=== PATIENT | female | born 1950 | race Caucasian/White ===

== ENCOUNTER 2018-03-02 16:58 | Emergency (ER) | payer OTHER, MEDICARE ==
--- OUTSIDE RECORDS SUMMARY | 2018-03-02 17:01 | XMS REPORT | Clinical Summary ---
:1950 Author Organization [facility] Address [address] [place] [address] Care Team Providers Name Role Phone Oscar Austin Primary Care Provider Allergies Active Allergy Reactions Severity Noted Date Comments Hydrocodone Rash Low 02/15/2018 Penicillin G Rash Low 02/16/2018 Current Medications Prescription Sig. Disp. Refills Start Date End Date Status atorvastatin (LIPITOR) 40 Take 40 mg by Active MG tablet mouth daily. aspirin (ECOTRIN) 81 MG Take 81 mg by Active enteric coated tablet mouth daily. DULoxetine (CYMBALTA) 60 Take 60 mg by Active MG capsule mouth daily. levothyroxine (SYNTHROID, Take 150 mcg by Active LEVOXYL) 150 mcg tablet mouth every morning. montelukast (SINGULAIR) 10 Take 10 mg by Active mg tablet mouth daily. pantoprazole (PROTONIX) 40 Take 40 mg by Active MG EC tablet mouth 2 (two) times a day. budesonide-formoterol Inhale 2 puffs Active (SYMBICORT) 160-4.5 daily. mcg/actuation inhaler valsartan-hydrochlorothiaz Take 1 tablet by Active sarina (DIOVAN-HCT) 320-25 mg mouth daily. per tablet verapamil sustained Take 240 mg by Active release (CALAN-SR) 240 MG mouth daily. SR tablet rivaroxaban (XARELTO) 20 Take 20 mg by Active mg tablet mouth daily. Active Problems Not on file Encounters Date Type Specialty Care Team Description 02/16/2018 Hospital Encounter Procedural Adam, Arrhythmia, vagal; Cardiology Moiz Atherosclerosis of [place] coronary artery of [place] heart without angina pectoris MD Carrington 02/16/2018 Procedure Pass Procedural Cardiology 02/16/2018 Surgery Procedural Ankit Medina loop recorder Cardiology Moiz insertion [[id number] MD Carrington (CPT)] after 03/01/2017 Family History Medical History Relation Name Comments Hypertension Father Hypertension Mother Relation Name Status Comments Father Mother Alive Social History Tobacco Use Types Packs/Day Years Used Date Never Smoker Smokeless Tobacco: Never Used Alcohol Use Drinks/Week oz/Week Comments No Sex Assigned at Date Recorded Not on file Last Filed Vital Signs Vital Sign Reading Time Taken Blood Pressure 141/70 02/16/2018 1:16 PM CDT Pulse 62 02/16/2018 1:16 PM CDT Temperature 35.9 C (96.7 F) 02/16/2018 12:04 PM CDT Respiratory Rate 19 02/16/2018 12:04 PM CDT Oxygen Saturation 96% 02/16/2018 12:04 PM CDT Inhaled Oxygen Concentration - - Weight 96.2 kg (212 lb) 02/16/2018 9:00 AM CDT Height 162.6 cm (5' 4") 02/16/2018 9:00 AM CDT Body Mass Index 36.39 02/16/2018 9:00 AM CDT Plan of Treatment Not on file Implants Implanted Type Area Utilization Management Manager Device Expiration Model / Identifier Date Serial / Lot System Reveal Linq W/Monitors - [id number] Cardiac N/A: [employer] 2018 LINQSYS / Implanted: 02/16/2018 (Quantity not on file) Pacemakers and N/A CARDIAC RHYTHM / Related DISEASE MGMT [id number] Products Procedures Procedure Name Priority Date/Time Associated Diagnosis Comments EP LOOP RECORDER Routine 02/16/2018 1:15 PM Arrhythmia, vagal Results for this INSERTION CDT Atherosclerosis of procedure are in [place] coronary the results artery of [place] section. heart without angina pectoris after 03/01/2017 Results Cv electrophysiology procedure (02/16/2018 1:15 PM) Specimen Performing Laboratory [facility] [id number] [place] [address] Narrative Successful LINQ implant. after 03/01/2017 Insurance Payer Benefit Plan / Group Subscriber ID Type Phone Address MEDICARE MEDICARE PART A AND B xxxxxxxxxx Medicare [place], [place] AARP AARP SUPPLEMENT xxxxxxxxxxx Commercial [phone] [place] [address]
--- NOTE | 2018-03-02 18:07 | RAD REPORT ---
EXAM DESCRIPTION: RAD - Knee Right 3 View - 03/02/2018 5:59 pm CLINICAL HISTORY: Pain and swelling to right knee. COMPARISON: None. FINDINGS: Moderate medial joint compartment space narrowing is present likely indicating osteoarthri tis. Small to moderate suprapatellar joint effusion is seen. No fracture or dislocation noted. Follow up MR imaging would be of value for assessment of internal derangement.
[2018-03-02] MEDS ORDERED: FENTANYL CITR 100 MCG/2 ML ONE (18:58)
--- NOTE | 2018-03-02 19:01 | EDPHYS ---
Physician Documentation [facility] Name: Mary Vargas Age: 68 yrs Sex: Female : 1950 Arrival Date: 03/02/2018 Time: 17:04 Bed 9 Private MD: ED Physician Pineda Cavazos HPI: 03/02 19:05 This 68 yrs old Female presents to ER via Ambulatory with complaints of Knee snw Injury. 19:05 The patient presents with an injury, pain, tenderness, weakness, gives out. The snw complaints affect the medial aspect of right knee. Context: The problem was sustained at home, resulted from a mis-step, the patient can partially bear weight, must have assistance, left knee replacement. Onset: The symptoms/episode began/occurred suddenly, today. Associated signs and symptoms: Pertinent positives: weakness. Treatment prior to arrival includes: knee immobilizer. Severity of symptoms: At their worst the symptoms were moderate. The patient has not experienced similar symptoms in the past, on opposite knee. It is unknown whether or not the patient has recently seen a physician. Historical: - Allergies: 17:16 HYDROCODONE; lk1 17:16 PENICILLINS; lk1 - PMHx: 17:16 allergies; COPD; Hyperlipidemia; Hypertension; TIA; lk1 - PSHx: 17:16 knee replacement; lk1 - Immunization history:: Adult Immunizations up to date. - Social history:: Smoking status: Patient/guardian denies using tobacco. ROS: 18:57 Constitutional: Negative for fever, chills, and weight loss, Eyes: Negative for injury, snw pain, redness, and discharge, ENT: Negative for injury, pain, and discharge, Neck: Negative for injury, pain, and swelling, Cardiovascular: Negative for chest pain, palpitations, and edema, Respiratory: Negative for shortness of breath, cough, wheezing, and pleuritic chest pain, Abdomen/GI: Negative for abdominal pain, nausea, vomiting, diarrhea, and constipation, Back: Negative for injury and pain, : Negative for injury, bleeding, discharge, and swelling, Skin: Negative for injury, rash, and discoloration, Neuro: Negative for headache, weakness, numbness, tingling, and seizure, Psych: Negative for depression, anxiety, suicide ideation, homicidal ideation, and hallucinations. 18:57 MS/extremity: Positive for injury or acute deformity, pain, swelling, tenderness, of the right knee. Exam: 18:53 Constitutional: This is a well developed, well nourished patient who is awake, alert, snw and in no acute distress. Head/Face: Normocephalic, atraumatic. Eyes: Pupils equal round and reactive to light, extra-ocular motions intact. Lids and lashes normal. Conjunctiva and sclera are non-icteric and not injected. Cornea within normal limits. Periorbital areas with no swelling, redness, or edema. ENT: Nares patent. No nasal discharge, no septal abnormalities noted. Tympanic membranes are normal and external auditory canals are clear. Oropharynx with no redness, swelling, or masses, exudates, or evidence of obstruction, uvula midline. Mucous membranes moist. Neck: Trachea midline, no thyromegaly or masses palpated, and no cervical lymphadenopathy. Supple, full range of motion without nuchal rigidity, or vertebral point tenderness. No Meningismus. Chest/axilla: Normal chest wall appearance and motion. Nontender with no deformity. No lesions are appreciated. Cardiovascular: Regular rate and rhythm with a normal S1 and S2. No gallops, murmurs, or rubs. Normal PMI, no JVD. No pulse deficits. Respiratory: Lungs have equal breath sounds bilaterally, clear to auscultation and percussion. No rales, rhonchi or wheezes noted. No increased work of breathing, no retractions or nasal flaring. Abdomen/GI: Soft, non-tender, with normal bowel sounds. No distension or tympany. No guarding or rebound. No evidence of tenderness throughout. Back: No spinal tenderness. No costovertebral tenderness. Full range of motion. Skin: Warm, dry with normal turgor. Normal color with no rashes, no lesions, and no evidence of cellulitis. Neuro: Awake and alert, GCS 15, oriented to person, place, time, and situation. Cranial nerves II-XII grossly intact. Motor strength 5/5 in all extremities. Sensory grossly intact. Cerebellar exam normal. Normal gait. Psych: Awake, alert, with orientation to person, place and time. Behavior, mood, and affect are within normal limits. 18:53 Musculoskeletal/extremity: Extremities: grossly normal except: noted in the medial aspect of right knee: decreased ROM, swelling, tenderness, Circulation is intact in all extremities. the right knee Sensation intact. DVT Exam: No signs of deep vein thrombosis. severe discomfort to medial right knee, + laxity. Vital Signs: 17:17 BP 121 / 63; Pulse 70; Resp 15; Temp 98.0(TE); Pulse Ox 96% on R/A; Weight 96.16 kg lk1 (R); Height 5 ft. 4 in. (162.56 cm) (R); Pain 10/10; 19:31 BP 127 / 65; Pulse 62; Resp 18; Pulse Ox 99% ; aj1 17:17 Body Mass Index 36.39 (96.16 kg, 162.56 cm) lk1 MDM: 17:45 Patient medically screened. snw 19:04 Data reviewed: vital signs, nurses notes. Data interpreted: Pulse oximetry: on room air snw is 96 %. Interpretation: normal. Counseling: I had a detailed discussion with the patient and/or guardian regarding: the historical points, exam findings, and any diagnostic results supporting the discharge/admit diagnosis, lab results, radiology results, the need for outpatient follow up, to return to the emergency department if symptoms worsen or persist or if there are any questions or concerns that arise at home. Special discussion: Based on the history and exam findings, there is no indication for further emergent testing or inpatient evaluation. I discussed with the patient/guardian the need to see the orthopedic surgeon for further evaluation of the symptoms. I discussed with the patient/guardian the need to see the primary care provider for further evaluation of the symptoms. 03/02 17:28 Order name: Knee Right 3 View XRAY; Complete Time: 18:15 snw Administered Medications: 19:05 Drug: fentaNYL (PF) 50 mcg Route: IM; Site: left deltoid; aj1 19:34 Follow up: Response: No adverse reaction aj1 Disposition: 03/03 18:42 Co-signature as Attending Physician, Pineda Cavazos MD. Disposition: 03/02/18 19:01 Discharged to Home. Impression: Unspecified internal derangement of right knee. - Condition is Stable. - Discharge Instructions: Knee Bracing, Knee Immobilizer, Knee Sprain, Knee Pain. - Prescriptions for Mobic 7.5 mg Oral Tablet - take 1 tablet by ORAL route once daily take with food; 20 tablet. Tylenol- Codeine #3 300-30 mg Oral Tablet - take 2 tablets by ORAL route every 6 hours As needed; 20 tablet. - Medication Reconciliation Form, Thank You Letter, Antibiotic Education, Prescription Opioid Use form. - Follow up: Private Physician; When: 2 - 3 days; Reason: Recheck today's complaints, Continuance of care, Re-evaluation by your physician. Follow up: Emergency Department; When: As needed; Reason: Worsening of condition. Signatures: Dispatcher [employer] EDEsme Chowdhury RN RN aj1 Maryana Zhu, JOURNEYMAN TOOL AND DIE MAKER-C JOURNEYMAN TOOL AND DIE MAKER-Csnw Tabitha Berry RN RN lk1 Pineda Cavazos MD MD gs Corrections: (The following items were deleted from the chart) 03/02 19:05 18:16 Knee Immobilizer ordered. samantha aj1 19:34 19:01 03/02/2018 19:01 Discharged to Home. Impression: Unspecified internal derangement aj1 of right knee. Condition is Stable. Forms are Medication Reconciliation Form, Thank You Letter, Antibiotic Education, Prescription Opioid Use. Follow up: Private Physician; When: 2 - 3 days; Reason: Recheck today's complaints, Continuance of care, Re-evaluation by your physician. Follow up: Emergency Department; When: As needed; Reason: Worsening of condition. samantha
--- NOTE | 2018-03-02 19:01 | ER ---
Nurse's Notes [facility] Name: Mary Vargas Age: 68 yrs Sex: Female : 1950 Arrival Date: 03/02/2018 Time: 17:04 Bed 9 Private MD: Diagnosis: Unspecified internal derangement of right knee Presentation: 03/02 17:14 Presenting complaint: Patient states: "I think I popped my knee (right) out last night. lk1 I put a brace on it to stabilize it.". Transition of care: patient was not received from another setting of care. Onset of symptoms was March 01, 2018 at 19:00. Initial Sepsis Screen: Does the patient meet any 2 criteria? No. Patient's initial sepsis screen is negative. Does the patient have a suspected source of infection? No. Patient's initial sepsis screen is negative. Care prior to arrival: None. 17:14 Method Of Arrival: Ambulatory lk1 17:14 Acuity: DAREN 4 lk1 Triage Assessment: 17:16 General: Appears in no apparent distress. Behavior is calm, cooperative, appropriate lk1 for age. Pain: Complains of pain in right knee Pain currently is 10 out of 10 on a pain scale. Musculoskeletal: Swelling present in right knee. Injury Description: Bruise. Historical: - Allergies: 17:16 HYDROCODONE; lk1 17:16 PENICILLINS; lk1 - PMHx: 17:16 allergies; COPD; Hyperlipidemia; Hypertension; TIA; lk1 - PSHx: 17:16 knee replacement; lk1 - Immunization history:: Adult Immunizations up to date. - Social history:: Smoking status: Patient/guardian denies using tobacco. Screenin:30 Abuse screen: Denies threats or abuse. Denies injuries from another. Nutritional aj1 screening: No deficits noted. Tuberculosis screening: No symptoms or risk factors identified. 19:31 Fall Risk None identified. aj1 Assessment: 17:30 General: Appears in no apparent distress. uncomfortable, Behavior is calm, cooperative, aj1 appropriate for age. Pain: Complains of pain in right knee. Neuro: Level of Consciousness is awake, alert, obeys commands, Oriented to person, place, time, situation. Cardiovascular: Patient's skin is warm and dry. Respiratory: Airway is patent Respiratory effort is even, unlabored, Respiratory pattern is regular, symmetrical. GI: No signs and/or symptoms were reported involving the gastrointestinal system. : No signs and/or symptoms were reported regarding the genitourinary system. EENT: No signs and/or symptoms were reported regarding the EENT system. Derm: Skin is pink, warm \\T\\ dry. normal. Musculoskeletal: Capillary refill < 3 seconds, in right toes. Range of motion: limited in right knee. 18:23 Reassessment: Patient appears in no apparent distress at this time. No changes from aj1 previously documented assessment. Patient and/or family updated on plan of care and expected duration. Pain level reassessed. Patient is alert, oriented x 3, equal unlabored respirations, skin warm/dry/pink. 19:31 Reassessment: Patient appears in no apparent distress at this time. No changes from aj1 previously documented assessment. Patient and/or family updated on plan of care and expected duration. Pain level reassessed. Patient is alert, oriented x 3, equal unlabored respirations, skin warm/dry/pink. Vital Signs: 17:17 BP 121 / 63; Pulse 70; Resp 15; Temp 98.0(TE); Pulse Ox 96% on R/A; Weight 96.16 kg lk1 (R); Height 5 ft. 4 in. (162.56 cm) (R); Pain 10/10; 19:31 BP 127 / 65; Pulse 62; Resp 18; Pulse Ox 99% ; aj1 17:17 Body Mass Index 36.39 (96.16 kg, 162.56 cm) lk1 ED Course: 17:04 Patient arrived in ED. sb2 17:15 Triage completed. lk1 17:19 Arm band placed on left wrist. lk1 17:28 Maryana Zhu FNP-C is PHCP. snw 17:28 Pineda Cavazos MD is Attending Physician. snw 17:28 Troy Altman PA is PHCP. cp 17:30 Patient has correct armband on for positive identification. Call light in reach. aj1 17:30 No provider procedures requiring assistance completed. aj1 17:58 X-ray completed. Portable x-ray completed in exam room. Patient tolerated procedure bb2 well. 17:59 Knee Right 3 View XRAY In Process Unspecified. EDMS 18:20 Esme nKight RN is Primary Nurse. aj1 19:31 Patient did not have IV access during this emergency room visit. Patient refused knee aj1 immobilizer, states that it doesn't fit her well and she has one at home. Administered Medications: 19:05 Drug: fentaNYL (PF) 50 mcg Route: IM; Site: left deltoid; aj1 19:34 Follow up: Response: No adverse reaction aj1 Outcome: 19:01 Discharge ordered by . samantha : Discharged to home aj1 : Condition: good : Discharge instructions given to patient, Instructed on discharge instructions, follow up and referral plans. no drinking with medication, no driving heavy equipment, medication usage, Demonstrated understanding of instructions, follow-up care, medications, Prescriptions given X 2. :34 Patient left the ED. aj1 Signatures: Dispatcher [employer] EDMS Esme Knight, RN RN aj1 Maryana Zhu, SILVICULTURE FORESTER-C SILVICULTURE FORESTER-Csnw Troy Altman PA PA cp Kluge, Leah, RN RN lk1 Gosia Perry bb2 Prerna Quach sb2
[2018-03-02 19:38] VITALS: TEMP 98
[2018-03-02 19:39] VITALS: BP 127/65; O2SAT 99
== END 2018-03-02 19:34 | disposition home or self-care (01) ==
LOC: ER 16:58
DX: M23.91 Unspecified internal derangement of right knee (principal); Z88.6 Allergy status to analgesic agent; Z88.0 Allergy status to penicillin; Z98.890 Other specified postprocedural states
CPT/HCPCS: 73562; 96372; 99284; J3010

== ENCOUNTER 2018-04-10 09:54 | Emergency (ER) | payer OTHER, MEDICARE ==
--- OUTSIDE RECORDS SUMMARY | 2018-04-10 09:57 | XMS REPORT | Clinical Summary ---
:1950 Author Organization [facility] Address [address] [place] [address] Care Team Providers Name Role Phone Oscar [...] Adam, Arrhythmia, vagal; Cardiology Moiz Atherosclerosis of [place] coronary artery of [place] heart without angina pectoris MD Carrington 02/16/2018 Procedure Pass Procedural Cardiology 02/16/2018 Surgery Procedural Ankit Medina loop recorder Cardiology Moiz insertion [[id number] MD Carrington (CPT)] after 04/09/2017 Family History Medical History Relation Name Comments [...] Not on file Implants Implanted Type Area Adjustment Examiner Device Expiration Model / Identifier Date Serial / Lot System Reveal Linq W/Monitors - [id number] Cardiac N/A: [employer] 2018 LINQSYS / Implanted: 02/16/2018 (Quantity not on file) Pacemakers and N/A CARDIAC RHYTHM / Related DISEASE MGMT [id number] Products Procedures Procedure Name Priority Date/Time Associated Diagnosis Comments EP LOOP RECORDER Routine 02/16/2018 1:15 PM Arrhythmia, vagal Results for this INSERTION CDT Atherosclerosis of procedure are in [place] coronary the results artery of [place] section. heart without angina pectoris after 04/09/2017 Results Cv electrophysiology procedure (02/16/2018 1:15 PM) Narrative Performed At Successful LINQ implant. [facility] Performing Organization Address City/State/Zipcode Phone Number [facility] [id number] [place] [address] after 04/09/2017 Insurance Payer Benefit Plan / Group Subscriber ID Type Phone Address MEDICARE MEDICARE PART A AND B xxxxxxxxxx Medicare [place], [place] AARP AARP SUPPLEMENT xxxxxxxxxxx Commercial [phone] [address]
--- OUTSIDE RECORDS SUMMARY | 2018-04-10 09:57 | XMS REPORT ---
:1950 Author Organization [employer] Care Team Providers Name Role Phone Oscar Austin Provider Role Unavailable Allergies No Known Allergies Problems Problem Type Condition Code Onset Dates Condition Status Problem Benign essential hypertension I10 Active Problem Obstructive sleep apnea G47.33 Active Problem Mixed hyperlipidemia E78.2 Active Problem Asthma J45.909 Active Assessment Benign essential hypertension I10 Active Problem Hypothyroidism E03.9 Active Problem Osteoarthritis of knee, unspecified M17.10 Active laterality, unspecified osteoarthritis type Problem Macular degeneration H35.30 Active Problem Colonic polyp K63.5 Active Problem Psoriasis L40.9 Active Problem Prediabetes R73.09 Active Problem Gastroesophageal reflux disease K21.9 Active without esophagitis Problem Age-related osteoporosis without M81.0 Active current pathological fracture Problem Systemic lupus erythematosus M32.9 Active Problem History of transient ischemic Z86.73 Active attack Problem Interstitial lung disease J84.9 Active Problem Mitral valve regurgitation I34.0 Active Problem Atherosclerotic heart disease of I25.10 Active [place] coronary artery without angina pectoris Problem Acute chronic obstructive pulmonary J44.9 Active disease with respiratory distress Problem Factor V Leiden mutation D68.51 Active Problem Cancer C80.1 Active Medications Medication Code Code Instructions Start End Status Dosage System Date Date Verapamil HCl [facility] 93039345984 240 MG Inactive ONCE A ER DAY ORALLY Verapamil HCl ND 94895322705 80 MG Orally April 03, Inactive 1 tablet Three times a 2018 day Verapamil HCl ND 73759593365 240 MG Orally April 03, Active 1 tablet ER Once a day 2018 Results No Known Results Summary Purpose [employer]Works Submission
--- OUTSIDE RECORDS SUMMARY | 2018-04-10 09:57 | XMS REPORT ---
:1950 Author Organization [employer] Care Team Providers Name Role Phone Oscar Austin Provider Role Unavailable Allergies No Known Allergies Problems Problem Type Condition Code Onset Dates Condition Status Problem Benign essential hypertension I10 Active Problem Obstructive sleep apnea G47.33 Active Problem Mixed hyperlipidemia E78.2 Active Problem Asthma J45.909 Active Assessment Gastroesophageal reflux disease K21.9 Active without esophagitis Problem Hypothyroidism E03.9 Active Problem Osteoarthritis of [...] Problem Atherosclerotic heart disease of I25.10 Active [place] coronary artery without angina pectoris Problem Acute chronic obstructive pulmonary J44.9 Active disease with respiratory distress Problem Factor V Leiden mutation D68.51 Active Problem Cancer C80.1 Active Medications Medication Code Code Instructions Start End Status Dosage System Date Date Pantoprazole [facility] 79077421053 40 MG Orally April 05, Active 1 tablet Sodium Twice a day [address] [facility] 06932868394 40 MG PO once a Inactive 1 TAB Sodium day DAILY IN AM Results No Known Results Summary Purpose [employer]Works Submission
--- OUTSIDE RECORDS SUMMARY | 2018-04-10 09:57 | XMS REPORT ---
:1950 Author Organization [employer] Care Team Providers Name Role Phone Oscar Austin Provider Role Unavailable Allergies No Known Allergies Problems Problem Type Condition Code Onset Dates Condition Status Problem Benign essential hypertension I10 Active Problem Obstructive sleep apnea G47.33 Active Problem Mixed hyperlipidemia E78.2 Active Problem Asthma J45.909 Active Problem Hypothyroidism E03.9 Active Problem Osteoarthritis [...] Problem Atherosclerotic heart disease of I25.10 Active [place] coronary artery without angina pectoris Problem Acute chronic obstructive pulmonary J44.9 Active disease with respiratory distress Problem Factor V Leiden mutation D68.51 Active Problem Cancer C80.1 Active Medications No Known Medications Results No Known Results Summary Purpose [employer]Works Submission
--- OUTSIDE RECORDS SUMMARY | 2018-04-10 09:57 | XMS REPORT ---
:1950 Author Organization eClinicalWorks Care Team Providers Name Role Phone Payton Austinh Provider Role Unavailable Allergies, Adverse Reactions, Alerts Substance Reaction Event Type Hydrocodone Bitart (Antituss) Info Not Available Drug Allergy Amoxicillin Info Not Available Drug Allergy Problems Problem Type Condition Code Onset Dates Condition Status Assessment Asthma J45.909 Active Assessment Gastroesophageal reflux disease K21.9 Active without esophagitis Assessment History of transient ischemic Z86.73 Active attack Problem Acute chronic obstructive pulmonary J44.9 Active disease with respiratory distress Assessment Osteoarthritis of knee, unspecified M17.10 Active laterality, unspecified osteoarthritis type Problem Cancer C80.1 Active Assessment Hypothyroidism E03.9 Active Problem Benign essential hypertension I10 Active Problem Obstructive sleep apnea G47.33 Active Problem Mixed hyperlipidemia E78.2 Active Problem Asthma J45.909 Active Problem Hypothyroidism E03.9 Active Assessment Benign essential hypertension I10 Active Assessment Mixed hyperlipidemia E78.2 Active Problem Osteoarthritis of knee, unspecified M17.10 Active laterality, unspecified osteoarthritis type Assessment 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 50934941138 108 (90 Base) Active 2 puffs as MCG/ACT needed Inhalation every [address] [facility] 29649455584 81 MG Orally Active 1 tablet Once a day Tramadol HCl [facility] 20591454792 50 MG Orally Active 1 tablet as every 6 hrs needed Vitamin D3 [facility] 94875036252 1000 UNIT Active 1 capsule Orally Once a day Betamethasone [facility] 69426778175 0.05 % Active 1 application Dipropionate Externally Once to affected a day area Verapamil HCl ER [facility] 13689051828 240 MG Active ONCE A DAY ORALLY Singulair [facility] 83963509065 10 MG Orally Active 1 tablet in Once a day the evening Pantoprazole [facility] 08357499387 40 MG PO once a Active 1 TAB DAILY Sodium day IN AM Symbicort [facility] 44248140171 160-4.5 MCG/ACT Active 2 puffs Inhalation Twice a day Duloxetine HCl [facility] 44816787231 60 MG Orally Active 1 capsule Once a day Xarelto [facility] 12410061788 20 MG Orally Active 1 tablet with Once a day food Diovan HCT [facility] 59563499738 320-25 MG Active 1 tablet Orally Once a day Calcium [facility] 58571256200 600-200 MG-UNIT Active not defined Orally Results No Known Results Summary Purpose eClinicalWorks Submission
--- NOTE | 2018-04-10 11:04 | RAD REPORT ---
EXAM DESCRIPTION: VAS - Extremity Venous Uni Ltd - 04/10/2018 10:57 am CLINICAL HISTORY: Right leg pain and swelling COMPARISON: None. TECHNIQUE: Real-time sonographic evaluation of the right lower extremity deep venous systems was per formed. FINDINGS: Normal compressibility, flow augmentation, phasic flow and spontaneous flow are identified in the right lower extremity common femoral, superficial femoral and popliteal deep veins. The deep veins at the ankle also clear of any identifiable thrombus. . No intraluminal filling defects seen. N o suspicious finding in the soft tissues. IMPRESSION: No DVT in the right lower extremity.
--- NOTE | 2018-04-10 11:05 | EDPHYS ---
Physician Documentation [facility] Name: Mary Vargas Age: 68 yrs Sex: Female : 1950 Arrival Date: 04/10/2018 Time: 09:58 Bed 15 Private MD: Oscar Austin ED Physician Troy Munguia HPI: 04/10 10:45 This 68 yrs old Female presents to ER via Ambulatory with complaints of jr8 redness to leg. 10:45 The patient presents with pain, swelling. The complaints affect the right leg. Onset: jr8 The symptoms/episode began/occurred acutely, 2 day(s) ago. Modifying factors: The symptoms are alleviated by nothing. the symptoms are aggravated by movement, weight bearing. Associated signs and symptoms: The patient has no apparent associated signs or symptoms. Severity of symptoms: At their worst the symptoms were moderate, in the emergency department the symptoms are unchanged. The patient has not experienced similar symptoms in the past. The patient has not recently seen a physician. Patient stated that she thinks she was bit by something. Stated that she has redness to medial right ankle region that now goes all the way around . Historical: - Allergies: 10:08 HYDROCODONE; sv 10:08 PENICILLINS; sv - Home Meds: 10:08 aspirin 81 mg Oral TbEC 1 tab once daily [Active]; betamethasone valerate 0.1 % Topical rb1 crea once daily [Active]; budesonide 3 mg Oral CECX 2 caps once daily [Active]; cholecalciferol (vitamin D3) 1,000 unit Oral cap daily [Active]; desonide 0.05 % Topical crea daily [Active]; Diovan HCT 320-25 mg Oral tab 1 tab once daily [Active]; folic acid 0.8 mg Oral cap 0.4 mg daily [Active]; levothyroxine 200 mcg tab 1 tab once daily [Active]; Lipitor 40 mg Oral tab 1 tab once daily [Active]; montelukast 10 mg Oral tab 1 tab once daily [Active]; Plaquenil 200 mg Oral tab 2 tabs once daily [Active]; PreserVision AREDS 2 194-064-71-1 np-jzph-qx-mg Oral cap daily [Active]; Protonix 40 mg Oral TbEC 1 tab once daily [Active]; verapamil 240 mg Oral TbER 1 tab once daily [Active]; Xarelto 20 mg Oral tab 1 tab once daily [Active]; - PMHx: 10:08 allergies; COPD; Hyperlipidemia; Hypertension; TIA; GERD; sv - PSHx: 10:08 knee replacement; Hysterectomy; Bladder suspension; neck lymph nodes removed; sv - Immunization history:: Adult Immunizations up to date. - Social history:: Smoking status: Patient/guardian denies using tobacco, Patient/guardian denies using alcohol. - Ebola Screening: : No symptoms or risks identified at this time. ROS: 10:45 Eyes: Negative for injury, pain, redness, and discharge, ENT: Negative for injury, jr8 pain, and discharge, Neck: Negative for injury, pain, and swelling, Cardiovascular: Negative for chest pain, palpitations, and edema, Respiratory: Negative for shortness of breath, cough, wheezing, and pleuritic chest pain, Abdomen/GI: Negative for abdominal pain, nausea, vomiting, diarrhea, and constipation, Back: Negative for injury and pain, MS/Extremity: Negative for injury and deformity, Neuro: Negative for headache, weakness, numbness, tingling, and seizure. 10:45 Skin: Positive for erythema, swelling, of the right leg. Exam: 10:45 Cardiovascular: Regular rate and rhythm with a normal S1 and S2. No gallops, murmurs, jr8 or rubs. Normal PMI, no JVD. No pulse deficits. Respiratory: Lungs have equal breath sounds bilaterally, clear to auscultation and percussion. No rales, rhonchi or wheezes noted. No increased work of breathing, no retractions or nasal flaring. MS/ Extremity: Pulses equal, no cyanosis. Neurovascular intact. Full, normal range of motion. Neuro: Awake and alert, GCS 15, oriented to person, place, time, and situation. Cranial nerves II-XII grossly intact. Motor strength 5/5 in all extremities. Sensory grossly intact. Cerebellar exam normal. Normal gait. 10:45 Skin: cellulitis, that is moderate, on the right lower leg, Patient has area of deep redness to medial right ankle region with surrounding erythema that is circumferential. Affected area only to distal portion of the lower leg . Vital Signs: 10:02 Temp 98.8(TE); Weight 96.16 kg; Height 5 ft. 4 in. (162.56 cm); Pain 7/10; sv 10:08 BP 136 / 70; Pulse 79; Resp 19; Pulse Ox 95% on R/A; rb1 11:00 BP 114 / 93; Pulse 79; Resp 19; Pulse Ox 96% on R/A; rb1 10:02 Body Mass Index 36.39 (96.16 kg, 162.56 cm) sv MDM: 10:10 Patient medically screened. toma 11:04 Data reviewed: vital signs, nurses notes, radiologic studies, ultrasound, and as a jr8 result, I will discharge patient. Data interpreted: Pulse oximetry: on room air is 95 %. Interpretation: normal. Counseling: I had a detailed discussion with the patient and/or guardian regarding: the historical points, exam findings, and any diagnostic results supporting the discharge/admit diagnosis, radiology results, the need for outpatient follow up, a family practitioner, to return to the emergency department if symptoms worsen or persist or if there are any questions or concerns that arise at home. 04/10 10:18 Order name: US Extremity Venous Unilateral Ltd; Complete Time: 11:05 jr8 Administered Medications: 11:12 Drug: Bactrim (160 mg-800 mg (DS) 1 tablet Route: PO; rb1 11:45 Follow up: Response: No adverse reaction rb1 11:37 Drug: Clindamycin 600 mg {Note: and right gluteus.} Route: IM; Site: left gluteus; rb1 11:50 Follow up: Response: No adverse reaction rb1 Disposition: 04/11 06:48 Co-signature as Attending Physician, Troy Munguia MD I agree with the assessment and [facility] plan of care. Disposition: 04/10/18 11:04 Discharged to Home. Impression: Cellulitis of right lower limb. - Condition is Stable. - Discharge Instructions: Cellulitis. - Prescriptions for Clindamycin HCl 300 mg Oral Capsule - take 1 capsule by ORAL route every 6 hours for 10 days; 40 capsule. Bactrim DS 800- 160 mg Oral Tablet - take 1 tablet by ORAL route every 12 hours for 10 days; 20 tablet. - Medication Reconciliation Form, Thank You Letter, Antibiotic Education, Prescription Opioid Use form. - Follow up: Oscar Austin DO; When: 2 - 3 days; Reason: Recheck today's complaints, Continuance of care, Re-evaluation by your physician. - Problem is new. - Symptoms have improved. Signatures: Dispatcher [employer] Valarie Garcia, RN RN Troy Fox MD MD cha Roszak, Josh, PA PA jr8 Octavia Chaparro, RN RN rb1 Corrections: (The following items were deleted from the chart) 04/10 11:52 11:04 04/10/2018 11:04 Discharged to Home. Impression: Cellulitis of right lower limb. rb1 Condition is Stable. Forms are Medication Reconciliation Form, Thank You Letter, Antibiotic Education, Prescription Opioid Use. Follow up: Oscar Austin; When: 2 - 3 days; Reason: Recheck today's complaints, Continuance of care, Re-evaluation by your physician. Problem is new. Symptoms have improved. jr8
--- NOTE | 2018-04-10 11:05 | ER ---
Nurse's Notes [facility] Name: Mary Vargas Age: 68 yrs Sex: Female : 1950 Arrival Date: 04/10/2018 Time: 09:58 Bed 15 Private MD: Oscar Austin Diagnosis: Cellulitis of right lower limb Presentation: 04/10 10:02 Presenting complaint: Patient states: RLE redness and swelling started Monday and has sv since increased. Unknown if pt was bitten by something. Pt reports unable to walk on her right heel. Transition of care: patient was not received from another setting of care. Onset of symptoms was April 08, 2018. Care prior to arrival: None. 10:02 Method Of Arrival: Ambulatory sv 10:02 Acuity: DAREN 3 sv 10:08 Risk Assessment: Do you want to hurt yourself or someone else? Patient reports no rb1 desire to harm self or others. Initial Sepsis Screen: Does the patient meet any 2 criteria? No. Patient's initial sepsis screen is negative. Does the patient have a suspected source of infection? No. Patient's initial sepsis screen is negative. Triage Assessment: 10:02 General: Appears in no apparent distress. uncomfortable, Behavior is calm, cooperative, sv appropriate for age. Pain: Complains of pain in right foot and right leg Pain currently is 7 out of 10 on a pain scale. at worst was 10 out of 10 on a pain scale. Pain began 2-3 days ago. EENT: No signs and/or symptoms were reported regarding the EENT system. Neuro: Level of Consciousness is awake, alert, obeys commands, Oriented to person, place, time, situation, Moves all extremities. Full function Gait is steady. Respiratory: Respiratory effort is even, unlabored, Respiratory pattern is regular, symmetrical. GI: No signs and/or symptoms were reported involving the gastrointestinal system. : No signs and/or symptoms were reported regarding the genitourinary system. Derm: Skin is normal. Musculoskeletal: Reports pain in heel of right foot. 10:02 Bite description: animal information: vaccination(s) is not applicable. rb1 Historical: - Allergies: 10:08 HYDROCODONE; sv 10:08 PENICILLINS; sv - Home Meds: 10:08 aspirin 81 mg Oral TbEC 1 tab once daily [Active]; betamethasone valerate 0.1 % Topical rb1 crea once daily [Active]; budesonide 3 mg Oral CECX 2 caps once daily [Active]; cholecalciferol (vitamin D3) 1,000 unit Oral cap daily [Active]; desonide 0.05 % Topical crea daily [Active]; Diovan HCT 320-25 mg Oral tab 1 tab once daily [Active]; folic acid 0.8 mg Oral cap 0.4 mg daily [Active]; levothyroxine 200 mcg tab 1 tab once daily [Active]; Lipitor 40 mg Oral tab 1 tab once daily [Active]; montelukast 10 mg Oral tab 1 tab once daily [Active]; Plaquenil 200 mg Oral tab 2 tabs once daily [Active]; PreserVision AREDS 2 021-634-74-1 na-saea-wa-mg Oral cap daily [Active]; Protonix 40 mg Oral TbEC 1 tab once daily [Active]; verapamil 240 mg Oral TbER 1 tab once daily [Active]; Xarelto 20 mg Oral tab 1 tab once daily [Active]; - PMHx: 10:08 allergies; COPD; Hyperlipidemia; Hypertension; TIA; GERD; sv - PSHx: 10:08 knee replacement; Hysterectomy; Bladder suspension; neck lymph nodes removed; sv - Immunization history:: Adult Immunizations up to date. - Social history:: Smoking status: Patient/guardian denies using tobacco, Patient/guardian denies using alcohol. - Ebola Screening: : No symptoms or risks identified at this time. Screenin:10 Abuse screen: Denies threats or abuse. Nutritional screening: No deficits noted. rb1 Tuberculosis screening: No symptoms or risk factors identified. Fall Risk Fall in past 12 months (25 points). No secondary diagnosis (0 pts). No IV (0 pts). Ambulatory Aid- None/Bed Rest/Nurse Assist (0 pts). Gait- Normal/Bed Rest/Wheelchair (0 pts) Mental Status- Oriented to own ability (0 pts). Total Lo Fall Scale indicates Low Risk Score (25-44 pts). Fall prevention measures have been instituted. Side Rails Up X 2 Placed close to Nursing Station 1:1 attendant Assigned to Pt. Frequent Obs/Assesments occuring Family Present and informed to notify staff if they need to leave bedside As available Patient and Family Educated on Fall Prevention Program and strategies. Assessment: 10:10 General: Appears uncomfortable, Behavior is calm, cooperative. Pain: Complains of pain rb1 in medial aspect of right calf Pain currently is 10 out of 10 on a pain scale. Pain began 2-3 days ago. Neuro: Level of Consciousness is awake, alert, obeys commands, Oriented to person, place, time, situation. Cardiovascular: Capillary refill < 3 seconds is brisk in bilateral toes. Respiratory: Airway is patent Respiratory effort is even, unlabored, Respiratory pattern is regular, symmetrical. GI: No signs and/or symptoms were reported involving the gastrointestinal system. : No signs and/or symptoms were reported regarding the genitourinary system. Derm: Skin is intact, Skin is red, Skin temperature is warm. Musculoskeletal: Range of motion: intact in all extremities. 11:10 Reassessment: Patient appears in no apparent distress at this time. No changes from rb1 previously documented assessment. Discharge pending due to medication administration. Waiting for pharmacy to bring medication to the floor. Patient denies pain at this time. Vital Signs: 10:02 Temp 98.8(TE); Weight 96.16 kg; Height 5 ft. 4 in. (162.56 cm); Pain 7/10; sv 10:08 BP 136 / 70; Pulse 79; Resp 19; Pulse Ox 95% on R/A; rb1 11:00 BP 114 / 93; Pulse 79; Resp 19; Pulse Ox 96% on R/A; rb1 10:02 Body Mass Index 36.39 (96.16 kg, 162.56 cm) sv ED Course: 09:58 Patient arrived in ED. as 09:58 Oscar Austin DO is Private Physician. as 10:02 Arm band placed on right wrist. Patient placed in an exam room, on a stretcher. sv 10:06 Cruz David PA is PHCP. jr8 10:06 Troy Munguia MD is Attending Physician. jr8 10:06 Octavia Chaparro, KAMRAN is Primary Nurse. rb1 10:07 Triage completed. sv 10:10 Patient has correct armband on for positive identification. Placed in gown. Bed in low rb1 position. Call light in reach. Side rails up X 1. Pulse ox on. NIBP on. 10:43 US Extremity Venous Unilateral Ltd In Process Unspecified. EDMS 11:04 Oscar Austin DO is Referral Physician. jr8 11:51 No provider procedures requiring assistance completed. Patient did not have IV access rb1 during this emergency room visit. Administered Medications: 11:12 Drug: Bactrim (160 mg-800 mg (DS) 1 tablet Route: PO; rb1 11:45 Follow up: Response: No adverse reaction rb1 11:37 Drug: Clindamycin 600 mg {Note: and right gluteus.} Route: IM; Site: left gluteus; rb1 11:50 Follow up: Response: No adverse reaction rb1 Outcome: 11:04 Discharge ordered by MD. jr8 11:51 Discharged to home ambulatory, with family. rb1 11:51 Condition: stable 11:51 Discharge instructions given to patient, Instructed on discharge instructions, follow up and referral plans. medication usage, Demonstrated understanding of instructions, follow-up care, medications, Prescriptions given X 2. 11:52 Patient left the ED. rb1 Signatures: Dispatcher [employer] EDIL Valarie Orozco, RN RN Conchis Orr Josh, PA PA jr8 Octavia Chaparro, RN RN rb1
[2018-04-10] MEDS ORDERED: SMZ./TMP. 800/160 MG TABLET ONE (11:11)
[2018-04-10] MEDS ORDERED: CLINDAMYCIN IV 150 MG/ML (4 mL) VIAL ONE (11:34)
[2018-04-10 11:56] VITALS: TEMP 98.8
[2018-04-10 11:58] VITALS: BP 114/93; O2SAT 96
== END 2018-04-10 11:52 | disposition home or self-care (01) ==
LOC: ER 09:54
DX: L03.115 Cellulitis of right lower limb (principal); J44.9 Chronic obstructive pulmonary disease, unspecified; E78.5 Hyperlipidemia, unspecified; I10 Essential (primary) hypertension; Z86.73 Personal history of transient ischemic attack (TIA), and cerebral infarction without residual deficits
CPT/HCPCS: 93971; 96372; 99284; S0077

== ENCOUNTER 2018-06-27 06:20 | Day surgery (SDC) | payer OTHER, MEDICARE ==
[2018-06-27] MEDS ORDERED: Ringers Lactate 1,000 ML IV ONE (07:07)
[2018-06-27 07:15] VITALS: TEMP 97
[2018-06-27] MEDS ORDERED: PROPOFOL 200 MG/20 ML VIAL IV ONE (08:16)
[2018-06-27] MEDS ORDERED: LIDOCAINE 1% MPF 2 ML AMPULE ONE (08:17)
--- OUTSIDE RECORDS SUMMARY | 2018-06-27 08:23 | XMS REPORT | Clinical Summary ---
:1950 Author Organization [facility] [employer] Address [address] [place] [address] Care Team Providers Name Role Phone Oscar [...] Adam, Arrhythmia, vagal; Cardiology Moiz Atherosclerosis of [place] coronary artery of [place] heart without angina pectoris MD Carrington 02/16/2018 Procedure Pass Procedural Cardiology 02/16/2018 Surgery Procedural Ankit Medina loop recorder Cardiology Moiz insertion [[id number] MD Carrington (CPT)] after 06/26/2017 Family History Medical History Relation Name Comments [...] Not on file Implants Implanted Type Area Refrigeration Person Device Expiration Model / Identifier Date Serial / Lot System Reveal Linq W/Monitors - [id number] Cardiac N/A: [employer] 2018 LINQSYS / Implanted: 02/16/2018 (Quantity not on file) Pacemakers and N/A CARDIAC RHYTHM / Related DISEASE MGMT [id number] Products Procedures Procedure Name Priority Date/Time Associated Diagnosis Comments EP LOOP RECORDER Routine 02/16/2018 1:15 PM Arrhythmia, vagal Results for this INSERTION CDT Atherosclerosis of procedure are in [place] coronary the results artery of [place] section. heart without angina pectoris after 06/26/2017 Results Cv electrophysiology procedure (02/16/2018 1:15 PM) Narrative Performed At Successful LINQ implant. [facility] Performing Organization Address City/State/Zipcode Phone Number [facility] [id number] [place] [address] after 06/26/2017 Insurance Payer Benefit Plan / Group Subscriber ID Type Phone Address MEDICARE MEDICARE PART A AND B xxxxxxxxxx Medicare [place], [place] AARP AARP SUPPLEMENT xxxxxxxxxxx Commercial [phone] [address]
--- OUTSIDE RECORDS SUMMARY | 2018-06-27 08:23 | XMS REPORT ---
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 pectoris Problem Macular [...] Problem Atherosclerotic heart disease of I25.10 Active [place] coronary artery without angina pectoris Problem Factor V Leiden mutation D68.51 Active Medications Medication Code Code Instructions Start End Status Dosage System Date Date Atorvastatin NDC 55267310612 40 MG Orally Active 1 tablet Calcium Once a day Synthroid NDC 19671063371 150 MCG Orally Active 1 tablet on Once a day an empty stomach in the morning Synthroid NDC 73699494666 150 MCG Orally March 13, Active 1 tablet on Once a day 2018 an empty stomach in the morning ProAir HFA [facility] 37735253730 108 (90 Base) Active 2 puffs as MCG/ACT needed Inhalation every 6 hrs Aspirin [facility] 41243332571 81 MG Orally Active 1 tablet Once a day Tramadol HCl [facility] 54319096897 50 MG Orally Active 1 tablet as every 6 hrs needed Vitamin D3 [facility] 59366154832 1000 UNIT Active 1 capsule Orally Once a day Betamethasone [facility] 37553431351 0.05 % Active 1 application Dipropionate Externally Once to affected a day area Verapamil HCl ER [facility] 87267256389 240 MG Active ONCE A DAY ORALLY Singulair [facility] 89375110776 10 MG Orally Active 1 tablet in Once a day the evening Pantoprazole [facility] 40410867742 40 MG PO once a Active 1 TAB DAILY Sodium day IN AM Symbicort [facility] 73710328428 160-4.5 MCG/ACT Active 2 puffs Inhalation Twice a day Duloxetine HCl [facility] 83826816386 60 MG Orally Active 1 capsule Once a day Xarelto [facility] 46357241923 20 MG Orally Active 1 tablet with Once a day food Diovan HCT [facility] 46554663525 320-25 MG Active 1 tablet Orally Once a day Calcium [facility] 27118602621 600-200 MG-UNIT Active not defined Orally Results No Known Results Summary Purpose eClinicalWorks Submission
--- OUTSIDE RECORDS SUMMARY | 2018-06-27 08:23 | XMS REPORT ---
[...] Problem Atherosclerotic heart disease of I25.10 Active [place] coronary artery without angina pectoris Problem Acute chronic obstructive pulmonary J44.9 Active disease with respiratory distress Problem Factor V Leiden mutation D68.51 Active Problem Cancer C80.1 Active Medications No Known Medications Results No Known Results Summary Purpose eClinicalWorks Submission
--- OUTSIDE RECORDS SUMMARY | 2018-06-27 08:23 | XMS REPORT ---
[...] Assessment Benign essential hypertension I10 Active Problem Osteoarthritis of knee, unspecified M17.10 [...] Problem Atherosclerotic heart disease of I25.10 Active [place] coronary artery without angina pectoris Problem Acute chronic obstructive pulmonary J44.9 Active disease with respiratory distress Problem Factor V Leiden mutation D68.51 Active Problem Cancer C80.1 Active Medications Medication Code Code Instructions Start End Status Dosage System Date Date Losartan [facility] 09404889166 100-25 MG Orally May 15, Active 1 tablet Potassium-HCTZ Once a day 2017 Diovan HCT [facility] 34522819284 320-25 MG Orally Inactive 1 tablet Once a day Results No Known Results Summary Purpose eClinicalWorks Submission
--- OUTSIDE RECORDS SUMMARY | 2018-06-27 08:23 | XMS REPORT ---
[...] Problem Atherosclerotic heart disease of I25.10 Active [place] coronary artery without angina pectoris Problem Acute chronic obstructive pulmonary J44.9 Active disease with respiratory distress Problem Factor V Leiden mutation D68.51 Active Problem Cancer C80.1 Active Medications Medication Code Code Instructions Start End Status Dosage System Date Date Verapamil HCl [facility] 99607276111 240 MG Inactive ONCE A ER DAY ORALLY Verapamil HCl ND 21966728827 80 MG Orally April 03, Inactive 1 tablet Three times a 2018 day Verapamil HCl ND 53931902295 240 MG Orally April 03, Active 1 tablet ER Once a day 2018 Results No Known Results Summary Purpose eClinicalWorks Submission
--- OUTSIDE RECORDS SUMMARY | 2018-06-27 08:23 | XMS REPORT ---
[...] Problem Atherosclerotic heart disease of I25.10 Active [place] coronary artery without angina pectoris Problem Acute chronic obstructive pulmonary J44.9 Active disease with respiratory distress Problem Factor V Leiden mutation D68.51 Active Problem Cancer C80.1 Active Medications Medication Code Code Instructions Start End Status Dosage System Date Date Pantoprazole [facility] 27993818928 40 MG Orally April 05, Active 1 tablet Sodium Twice a day 2017 Pantoprazole [facility] 64258151025 40 MG PO once a Inactive 1 TAB Sodium day DAILY IN AM Results No Known Results Summary Purpose eClinicalWorks Submission
--- OUTSIDE RECORDS SUMMARY | 2018-06-27 08:23 | XMS REPORT ---
[...] Problem Atherosclerotic heart disease of I25.10 Active [place] coronary artery without angina pectoris Problem Acute chronic obstructive pulmonary J44.9 Active disease with respiratory distress Problem Factor V Leiden mutation D68.51 Active Problem Cancer C80.1 Active Medications No Known Medications Results No Known Results Summary Purpose eClinicalWorks Submission
--- OUTSIDE RECORDS SUMMARY | 2018-06-27 08:23 | XMS REPORT ---
[...] Problem Atherosclerotic heart disease of I25.10 Active [place] coronary artery without angina pectoris Problem Acute chronic obstructive pulmonary J44.9 Active disease with respiratory distress Problem Factor V Leiden mutation D68.51 Active Problem Cancer C80.1 Active Medications No Known Medications Results No Known Results Summary Purpose eClinicalWorks Submission
--- OUTSIDE RECORDS SUMMARY | 2018-06-27 08:24 | XMS REPORT ---
:1950 Author Organization eClinicalWorks Care Team Providers Name Role Phone Oscar Austin Provider Role Unavailable Allergies No Known Allergies Problems Problem Type Condition Code Onset Dates Condition Status Assessment Asthma J45.909 Active Assessment Gastroesophageal reflux disease K21.9 Active without esophagitis Assessment History of transient ischemic Z86.73 Active attack Assessment Osteoarthritis of knee, unspecified M17.10 Active laterality, unspecified osteoarthritis type Problem Acute chronic obstructive pulmonary J44.9 Active disease with respiratory distress Assessment Hypothyroidism E03.9 Active Problem Cancer C80.1 Active Assessment Atherosclerotic heart disease of I25.10 Active [place] coronary artery without angina pectoris Problem Benign essential hypertension I10 Active Problem Obstructive sleep apnea G47.33 Active Problem Mixed hyperlipidemia E78.2 Active Problem Asthma J45.909 Active Problem Hypothyroidism E03.9 Active Assessment Benign essential hypertension I10 Active Problem Osteoarthritis of knee, unspecified M17.10 Active laterality, unspecified osteoarthritis type Assessment Mixed hyperlipidemia E78.2 Active Problem Macular degeneration H35.30 Active Problem Colonic [...] Problem Atherosclerotic heart disease of I25.10 Active [place] coronary artery without angina pectoris Problem Factor V Leiden mutation D68.51 Active Medications Medication Code Code Instructions Start End Status Dosage System Date Date Symbicort [facility] 99692980232 160-4.5 Active 2 puffs MCG/ACT Inhalation Twice a day Synthroid [facility] 30106983039 150 MCG Orally Active 1 tablet on Once a day an empty stomach in the morning Pantoprazole [facility] 80780329316 40 MG PO once Active 1 TAB DAILY Sodium a day IN AM Losartan [facility] 22636626864 100-25 MG April Active 1 tablet Potassium-HCTZ Orally Once a 2017 Diovan HCT [facility] 96644281620 320-25 MG Inactive 1 tablet Orally Once a day ProAir HFA [facility] 17765405472 108 (90 Base) Active 2 puffs as MCG/ACT needed Inhalation every 6 hrs Singulair [facility] 97028002783 10 Orally Once Active 1 tablet in a day the evening Duloxetine HCl [facility] 34906232594 60 MG Orally Active 1 capsule Once a day Tramadol HCl [facility] 44677758599 50 MG Orally Active 1 tablet as every 6 hrs needed Verapamil HCl ER [facility] 07668775554 240 MG Orally March Active 1 tablet Once a day 2017 Aspirin [facility] 45980933196 81 MG Orally Active 1 tablet Once a day Betamethasone [facility] 17710535015 0.05 % Active 1 application Dipropionate Externally to affected Once a day area Xarelto [facility] 39033567708 20 MG Orally Active 1 tablet with Once a day food Atorvastatin [facility] 33871235541 40 MG Orally Active 1 tablet Calcium Once a day Verapamil HCl ER [facility] 40799425038 240 MG Active ONCE A DAY ORALLY Pantoprazole [facility] 44340740970 40 MG Orally March Active 1 tablet Sodium Twice a day 2017 Calcium [facility] 72278008044 600-200 Active not defined MG-UNIT Orally Vitamin D3 [facility] 63412657669 1000 UNIT Active 1 capsule Orally Once a day Losartan [facility] 61085125597 100-25 MG Jun 15, Active 1 tablet Potassium-HCTZ Orally Once a 2017 day Results No Known Results Summary Purpose eClinicalWorks Submission
--- NOTE | 2018-06-27 08:46 | ENDO RPT ---
[address], [address] EGD PROCEDURE REPORT EXAM DATE: 06/27/2018 PATIENT NAME: Mary Vargas MR#: [id number] BIRTHDATE: 1950 ATTENDING: Edmundo Poon Dr STATUS: outpatient INVESTIGATIVE WRITER: Helga Marques and Edyta Arauz RN INDICATIONS: The patient is a 68 yr old Female here for an EGD due to right upper quadrant abdominal pain, left upper quadrant abdominal pain, belching, bloating, dyspepsia, and weight loss PROCEDURE PERFORMED: EGD with biopsy MEDICATIONS: Per Anesthesia. TOPICAL ANESTHETIC: none CONSENT: The patient understands the risks and benefits of the procedure and understands that these risks include, but are not limited to: sedation, allergic reaction, infection, perforation and/or bleeding. Alternative means of evaluation and treatment include, among others: physical exam, x-rays, and/or surgical intervention. The patient elects to proceed with this endoscopic procedure. DESCRIPTION OF PROCEDURE: During intra-op preparation period all mechanical medical equipment was checked for proper function. Hand hygiene and appropriate measures for infection prevention was taken. Procedure, possible complications, and alternatives including but not limited to the possibility of bleeding, perforation, tear, infection, sepsis, need for surgery, need for blood transfusion, and anesthesia related complications were explained to the patient. After the risks, benefits and alternatives of the procedure were thoroughly explained, Informed consent was verified, confirmed and timeout was successfully executed by the treatment team. The patient was placed in the left lateral position. The patient was anesthetized with topical anesthesia. Through the anesthetized oropharyngeal area, the scope was passed without any difficulty. The [id number] ([id number]) endoscope was introduced through the mouth and advanced to the third portion of the duodenum. Retroflexed views revealed a small hiatal hernia. The gastroscope was then slowly withdrawn and removed. A small hiatal hernia was found Moderate gastritis was found in the body of the stomach. Multiple biopsies were obtained and sent to pathology. An erosion was found in the body of the stomach. 6 mm pedunculated polyp at the cardia, s/p biopsy. 6 mm sessile polyp in the body of the stomach, s/p biopsy. Mild gastritis was found in the antrum. Duodenitis was found in the bulb of the duodenum. ADVERSE EVENTS: There were no complications. IMPRESSIONS: 1. Small hiatal hernia 2. Moderate gastritis with nodular mucosa in the body of the stomach, s/p biopsies 3. Erosion in the body of the stomach 4. 6 mm pedunculated polyp at the cardia, s/p biopsy 5. 6 mm sessile polyp in the body of the stomach, s/p biopsy 6. Mild gastritis in the antrum 7. Mild duodenitis in the bulb of the duodenum RECOMMENDATIONS: REPEAT EXAM: Edmnudo Poon Dr eSigned: Edmundo Poon Dr 06/27/2018 8:45 AM cc: CPT CODES: ICD9 CODES: PATIENT NAME: Mary Vargas MR#: [id number]
--- NOTE | 2018-06-27 09:07 | ENDO RPT ---
[address], [address] COLONOSCOPY PROCEDURE REPORT EXAM DATE: 06/27/2018 PATIENT NAME: Mary Vargas MR #: [id number] BIRTHDATE: 1950 ATTENDING: Edmundo Poon Dr STATUS: outpatient CHECKMAN: Helga Marques and Edyta Arauz RN INDICATIONS: The patient is a 68 yr old Female here for a colonoscopy due to abdominal pain, change in bowel habits, constipation, personal history of colon polyps, and weight loss PROCEDURE PERFORMED: Colonoscopy MEDICATIONS: Per Anesthesia. ESTIMATED BLOOD LOSS: None CONSENT: The patient understands the risks and benefits of the procedure and understands that these risks include, but are not limited to: sedation, allergic reaction, infection, perforation and/or bleeding. Alternative means of evaluation and treatment include, among others: physical exam, x-rays, and/or surgical intervention. The patient elects to proceed with this endoscopic procedure. DESCRIPTION OF PROCEDURE: During intra-op preparation period all mechanical medical equipment was checked for proper function. Hand hygiene and appropriate measures for infection prevention was taken. Procedure, possible complications, alternatives including, but not limited to possibility of bleeding, perforation, tear, infection, sepsis, need for surgery, need for blood transfusion, were explained to the patient. After the risks, benefits and alternatives of the procedure were thoroughly explained, Informed consent was verified, confirmed and timeout was successfully executed by the treatment team. The patient was placed in the left lateral position. A digital rectal exam was performed and revealed external hemorrhoids. After appropriate level of anesthesia, the scope was passed. The [id number] ([id number]) and [id number] ([id number]) endoscope was introduced through the anus and advanced to the cecum, which was identified by both the appendix and ileocecal valve. The quality of the prep was fair. The instrument was then slowly withdrawn as the colon was fully examined. Scope withdrawal time was 7 minutes. COLON FINDINGS: Small lipoma was found at the cecum. Moderate sized internal and external hemorrhoids were found. Retroflexed views revealed small hemorrhoids. The scope was then completely withdrawn from the patient and the procedure terminated. ADVERSE EVENTS: There were no complications. IMPRESSIONS: 1. Small 5 mm lipoma in the cecum 2. Moderate sized internal < external hemorrhoids 3. Intubation to cecum 4. Personal history of colon polyps RECOMMENDATIONS: fiber rich diet RECALL: Return in 3 year(s) for Colonoscopy. Edmundo Poon Dr eSigned: Edmundo Poon Dr 06/27/2018 9:07 AM cc: CPT CODES: ICD9 CODES: 1. 455.5 External hemorrhoids with other complication 2. 214.3 Lipoma of intra-abdominal organs 3. 569.89 Other specified disorders of intestines PATIENT NAME: Mary Vargas MR#: [id number]
[2018-06-27 09:17] VITALS: O2SAT 98
[2018-06-27 09:30] VITALS: BP 127/71
== END 2018-06-27 09:34 | disposition home or self-care (01) ==
LOC: OR 06:20
PROVIDERS: ATTEND Internal Medicine Gastroenterology
PROC: 0DJD8ZZ Inspection of Lower Intestinal Tract, Via Natural or Artificial Opening Endoscopic (ICD-10-PCS; principal; 2018-06-27 08:00)
PROC: 0DB68ZX Excision of Stomach, Via Natural or Artificial Opening Endoscopic, Diagnostic (ICD-10-PCS; 2018-06-27 08:00)
DX: K29.50 Unspecified chronic gastritis without bleeding (principal); K31.7 Polyp of stomach and duodenum; D17.5 Benign lipomatous neoplasm of intra-abdominal organs; K25.9 Gastric ulcer, unspecified as acute or chronic, without hemorrhage or perforation; K29.80 Duodenitis without bleeding; K44.9 Diaphragmatic hernia without obstruction or gangrene; K59.00 Constipation, unspecified; K64.8 Other hemorrhoids; K64.4 Residual hemorrhoidal skin tags; R63.4 Abnormal weight loss; I10 Essential (primary) hypertension; E03.9 Hypothyroidism, unspecified; J45.909 Unspecified asthma, uncomplicated; J44.9 Chronic obstructive pulmonary disease, unspecified; G47.33 Obstructive sleep apnea (adult) (pediatric); Z86.010 Personal history of colon polyps; Z88.0 Allergy status to penicillin
CPT/HCPCS: 43239; 45378; 88305; 88312; J2001

== ENCOUNTER 2018-10-06 19:50 | Emergency (ER) | payer OTHER, MEDICARE ==
--- OUTSIDE RECORDS SUMMARY | 2018-10-06 19:53 | XMS REPORT ---
[...] Problem Atherosclerotic heart disease of I25.10 Active [place] coronary artery without angina pectoris Problem Acute chronic obstructive pulmonary J44.9 Active disease with respiratory distress Problem Factor V Leiden mutation D68.51 Active Problem Cancer C80.1 Active Medications No Known Medications Results No Known Results Summary Purpose eClinicalWorks Submission
--- OUTSIDE RECORDS SUMMARY | 2018-10-06 19:53 | XMS REPORT ---
[...] Assessment Atherosclerotic heart disease of I25.10 Active [place] coronary artery without angina pectoris Problem Benign [...] Problem Atherosclerotic heart disease of I25.10 Active [place] coronary artery without angina pectoris Problem Factor V Leiden mutation D68.51 Active Medications Medication Code Code Instructions Start End Status Dosage System Date Date Symbicort [facility] 01251935685 160-4.5 Active 2 puffs MCG/ACT Inhalation Twice a day Synthroid [facility] 41119594062 150 MCG Orally Active 1 tablet on Once a day an empty stomach in the morning Pantoprazole [facility] 37667902277 40 MG PO once Active 1 TAB DAILY Sodium a day IN AM Losartan [facility] 53357346326 100-25 MG April Active 1 tablet Potassium-HCTZ Orally Once a 2017 Diovan HCT [facility] 40198167631 320-25 MG Inactive 1 tablet Orally Once a day ProAir HFA [facility] 58753110494 108 (90 Base) Active 2 puffs as MCG/ACT needed Inhalation every 6 hrs Singulair [facility] 98133719404 10 Orally Once Active 1 tablet in a day the evening Duloxetine HCl [facility] 84685700110 60 MG Orally Active 1 capsule Once a day Tramadol HCl [facility] 12861365219 50 MG Orally Active 1 tablet as every 6 hrs needed Verapamil HCl ER [facility] 21318982720 240 MG Orally March Active 1 tablet Once a day 2017 Aspirin [facility] 50715075554 81 MG Orally Active 1 tablet Once a day Betamethasone [facility] 34905253597 0.05 % Active 1 application Dipropionate Externally to affected Once a day area Xarelto [facility] 14907823092 20 MG Orally Active 1 tablet with Once a day food Atorvastatin [facility] 51342749415 40 MG Orally Active 1 tablet Calcium Once a day Verapamil HCl ER [facility] 29957779834 240 MG Active ONCE A DAY ORALLY Pantoprazole [facility] 11940294688 40 MG Orally March Active 1 tablet Sodium Twice a day 2017 Calcium [facility] 17403171115 600-200 Active not defined MG-UNIT Orally Vitamin D3 [facility] 38052353988 1000 UNIT Active 1 capsule Orally Once a day Losartan [facility] 01236452337 100-25 MG Jun 15, Active 1 tablet Potassium-HCTZ Orally Once a 2017 day Results No Known Results Summary Purpose eClinicalWorks Submission
--- OUTSIDE RECORDS SUMMARY | 2018-10-06 19:53 | XMS REPORT | Clinical Summary ---
:1950 Author Organization [facility] Address [address] [place] [address] Care Team Providers Name Role Phone Oscar Austin Primary Care Provider Allergies Active Allergy Reactions Severity Noted Date Comments Hydrocodone Rash Low 02/15/2018 Penicillin G Rash Low 02/16/2018 Medications Medication Sig Dispensed Refills Start Date End Date Status atorvastatin (LIPITOR) Take 40 mg by 0 Active 40 MG tablet mouth daily. aspirin (ECOTRIN) 81 MG Take 81 mg by 0 Active enteric coated tablet mouth daily. DULoxetine (CYMBALTA) 60 Take 60 mg by 0 Active MG capsule mouth daily. levothyroxine Take 150 mcg by 0 Active (SYNTHROID, LEVOXYL) 150 mouth every mcg tablet morning. montelukast (SINGULAIR) Take 10 mg by 0 Active 10 mg tablet mouth daily. pantoprazole (PROTONIX) Take 40 mg by 0 Active 40 MG EC tablet mouth 2 (two) times a day. budesonide-formoterol Inhale 2 puffs 0 Active (SYMBICORT) 160-4.5 daily. mcg/actuation inhaler valsartan-hydrochlorothi Take 1 tablet by 0 Active azide (DIOVAN-HCT) mouth daily. 320-25 mg per tablet verapamil sustained Take 240 mg by 0 Active release (CALAN-SR) 240 mouth daily. MG SR tablet rivaroxaban (XARELTO) 20 Take 20 mg by 0 Active mg tablet mouth daily. Active Problems Not on file Encounters Date Type Specialty Care Team Description 02/16/2018 Surgery Procedural Duchman, Ep loop recorder Cardiology [place] insertion [[id number] MD [facility] (CPT)] 02/16/2018 Hospital Encounter Procedural Duchman, Arrhythmia, vagal; Cardiology [place] Atherosclerosis of [place] coronary artery of [place] heart without angina pectoris MD [facility] after 10/05/2017 Family History Medical History Relation Name Comments Hypertension Father Hypertension Mother Relation Name Status Comments Father Mother Alive Social History Tobacco Use Types Packs/Day Years Used Date Never Smoker Smokeless Tobacco: Never Used Alcohol Use Drinks/Week oz/Week Comments No Sex Assigned at Date Recorded Not on file Job Start Date Occupation Industry Not on file Not on file Not on file Travel History Travel Start Travel End No recent travel history available. Last Filed Vital Signs Vital Sign Reading [...] Not on file Implants Implanted Type [employer] Work[employer] General Device Shelf Model / Identifier Expiration Serial / Date Lot System Reveal Linq W/Monitors - [id number] Cardiac N/A: [employer] 2018 LINQSYS / Implanted: 02/16/2018 (Quantity not on file) Pacemakers and N/A CARDIAC RHYTHM / Related DISEASE MGMT [id number] Products Procedures Procedure Name Priority Date/Time Associated Diagnosis Comments EP LOOP RECORDER Routine 02/16/2018 1:15 PM Arrhythmia, vagal Results for this INSERTION CDT Atherosclerosis of procedure are in [place] coronary the results artery of [place] section. heart without angina pectoris after 10/05/2017 Results Cv electrophysiology procedure (02/16/2018 1:15 PM CDT) Narrative Performed At Successful LINQ implant. [facility] Performing Organization Address City/State/Zipcode Phone Number [facility] [id number] [place] [address] after 10/05/2017 Insurance Payer Benefit Plan / Group Subscriber ID Type Phone Address MEDICARE MEDICARE PART A AND B xxxxxxxxxx Medicare [place], [place] AARP AARP SUPPLEMENT xxxxxxxxxxx Commercial
--- OUTSIDE RECORDS SUMMARY | 2018-10-06 19:53 | XMS REPORT ---
[...] Problem Atherosclerotic heart disease of I25.10 Active [place] coronary artery without angina pectoris Problem Acute chronic obstructive pulmonary J44.9 Active disease with respiratory distress Problem Factor V Leiden mutation D68.51 Active Problem Cancer C80.1 Active Medications Medication Code Code Instructions Start End Status Dosage System Date Date Pantoprazole [facility] 48671196460 40 MG Orally April 05, Active 1 tablet Sodium Twice a day 2017 Pantoprazole [facility] 54672731505 40 MG PO once a Inactive 1 TAB Sodium day DAILY IN AM Results No Known Results Summary Purpose eClinicalWorks Submission
--- OUTSIDE RECORDS SUMMARY | 2018-10-06 19:53 | XMS REPORT ---
[...] Problem Atherosclerotic heart disease of I25.10 Active [place] coronary artery without angina pectoris Problem Acute chronic obstructive pulmonary J44.9 Active disease with respiratory distress Problem Factor V Leiden mutation D68.51 Active Problem Cancer C80.1 Active Medications No Known Medications Results No Known Results Summary Purpose eClinicalWorks Submission
--- OUTSIDE RECORDS SUMMARY | 2018-10-06 19:53 | XMS REPORT ---
[...] Assessment Atherosclerotic heart disease of I25.10 Active [place] coronary artery without angina pectoris Problem Macular [...] Problem Atherosclerotic heart disease of I25.10 Active [place] coronary artery without angina pectoris Problem Factor V Leiden mutation D68.51 Active Medications Medication Code Code Instructions Start End Status Dosage System Date Date Atorvastatin [facility] 20667179796 40 MG Orally Active 1 tablet Calcium Once a day Synthroid [facility] 83525483801 150 MCG Orally Active 1 tablet on Once a day an empty stomach in the morning Synthroid [facility] 90153994214 150 MCG Orally March 13, Active 1 tablet on Once a day 2018 an empty stomach in the morning ProAir HFA [facility] 62751379922 108 (90 Base) Active 2 puffs as MCG/ACT needed Inhalation every 6 hrs Aspirin [facility] 67379464133 81 MG Orally Active 1 tablet Once a day Tramadol HCl [facility] 88419848721 50 MG Orally Active 1 tablet as every 6 hrs needed Vitamin D3 [facility] 31489582411 1000 UNIT Active 1 capsule Orally Once a day Betamethasone [facility] 40132696632 0.05 % Active 1 application Dipropionate Externally Once to affected a day area Verapamil HCl ER [facility] 23786284834 240 MG Active ONCE A DAY ORALLY Singulair [facility] 89336546976 10 MG Orally Active 1 tablet in Once a day the evening Pantoprazole [facility] 51232180116 40 MG PO once a Active 1 TAB DAILY Sodium day IN AM Symbicort [facility] 07924467574 160-4.5 MCG/ACT Active 2 puffs Inhalation Twice a day Duloxetine HCl [facility] 16270675260 60 MG Orally Active 1 capsule Once a day Xarelto [facility] 95226581629 20 MG Orally Active 1 tablet with Once a day food Diovan HCT [facility] 67467195617 320-25 MG Active 1 tablet Orally Once a day Calcium [facility] 50327864965 600-200 MG-UNIT Active not defined Orally Results No Known Results Summary Purpose eClinicalWorks Submission
--- OUTSIDE RECORDS SUMMARY | 2018-10-06 19:53 | XMS REPORT ---
[...] Problem Atherosclerotic heart disease of I25.10 Active [place] coronary artery without angina pectoris Problem Acute chronic obstructive pulmonary J44.9 Active disease with respiratory distress Problem Factor V Leiden mutation D68.51 Active Problem Cancer C80.1 Active Medications No Known Medications Results No Known Results Summary Purpose eClinicalWorks Submission
--- OUTSIDE RECORDS SUMMARY | 2018-10-06 19:53 | XMS REPORT ---
[...] Problem Atherosclerotic heart disease of I25.10 Active [place] coronary artery without angina pectoris Problem Acute chronic obstructive pulmonary J44.9 Active disease with respiratory distress Problem Factor V Leiden mutation D68.51 Active Problem Cancer C80.1 Active Medications Medication Code Code Instructions Start End Status Dosage System Date Date Verapamil HCl [facility] 73515919220 240 MG Inactive ONCE A ER DAY ORALLY Verapamil HCl ND 39109647194 80 MG Orally April 03, Inactive 1 tablet Three times a 2018 day Verapamil HCl ND 86592671950 240 MG Orally April 03, Active 1 tablet ER Once a day 2018 Results No Known Results Summary Purpose eClinicalWorks Submission
--- OUTSIDE RECORDS SUMMARY | 2018-10-06 19:53 | XMS REPORT ---
[...] Problem Atherosclerotic heart disease of I25.10 Active [place] coronary artery without angina pectoris Problem Acute chronic obstructive pulmonary J44.9 Active disease with respiratory distress Problem Factor V Leiden mutation D68.51 Active Problem Cancer C80.1 Active Medications Medication Code Code Instructions Start End Status Dosage System Date Date Losartan [facility] 63344727421 100-25 MG Orally May 15, Active 1 tablet Potassium-HCTZ Once a day 2017 Diovan HCT [facility] 26920075242 320-25 MG Orally Inactive 1 tablet Once a day Results No Known Results Summary Purpose eClinicalWorks Submission
[2018-10-06] MEDS ORDERED: ALBUTEROL 2.5 MG/3 ML NEB SOL ONE (20:51)
[2018-10-06] MEDS ORDERED: IPRATROPIUM BROM 0.5MG/2.5ML ONE (20:54)
[2018-10-06 21:19] LABS: Absolute Lymphocytes (CBC) 1.5 K/uL (0.7-4.9); Absolute Monocytes 0.8 K/uL (0.1-1.3); Absolute Neutrophil 4.1 K/uL (1.8-8.0); Basophils % 0.6 % (0-1.3); Eosinophils % 3.8 % (0-4.4); Hematocrit 40.1 % (36.0-45.0); Lymphocytes % 22.3 % (15.3-44.8); MPV 7.8 fL (7.6-11.3); Monocytes % 11.7 % (3.3-12.3); RBC Red Blood Cell Count 4.54 M/uL (3.86-4.86)
[2018-10-06 21:28] LABS: Protime INR 1.5
--- NOTE | 2018-10-06 21:39 | RAD REPORT ---
EXAM DESCRIPTION: RAD - Chest Single View - 10/06/2018 9:26 pm CLINICAL HISTORY: Cough, shortness of breath COMPARISON: None. TECHNIQUE: AP portable chest image was obtained 2053 hours . FINDINGS: No peripheral mass or consolidation. No failure or volume overload. Heart and vasculature are normal. No measurable pleural effusion and no pneumothorax. The lung base markings are mildly pro minent suspected to be baseline rather than infiltrate. No comparison is available. No acute aortic f indings suspected. IMPRESSION: No acute cardiopulmonary process.
[2018-10-06 21:40] LABS: ALT/SGPT 30 U/L (12-78); AST/SGOT 21 U/L (15-37); Albumin 3.4 g/dL (3.4-5.0); Alkaline Phosphatase 187 U/L (45-117); BUN Blood Urea Nitrogen 17 mg/dL (7-18); Bicarbonate 30 mmol/L (21-32); Bilirubin Direct < 0.1 mg/dL (0-0.2); Bilirubin Total 0.2 mg/dL (0.2-1.0); Glucose Level 121 mg/dL (74-106); Magnesium 2.3 mg/dL (1.8-2.4); NT PRO-BNP 119 pg/mL (<125); Potassium 3.3 mmol/L (3.5-5.1); Protein, Total 7.6 g/dL (6.4-8.2); Sodium Level 143 mmol/L (136-145); Troponin (Emerg Dept Use Only) < 0.02 ng/mL (0.0-0.045)
[2018-10-06] MEDS ORDERED: predniSONE 20 MG TAB ONE (22:20)
--- NOTE | 2018-10-06 22:48 | ER ---
Nurse's Notes [facility] Name: Mary Vargas Age: 68 yrs Sex: Female : 1950 Arrival Date: 10/06/2018 Time: 19:52 Bed 26 Private MD: Diagnosis: Chronic obstructive pulmonary disease with (acute) exacerbation Presentation: 10/06 19:55 Presenting complaint: Patient states: "I'm having a hard time breathing" Reports that aj1 she has been having shortness of breath since Monday. She talked to her Dr and he told her to take some OTC cold medicine, and to call if I started running fever, but he was closed by then" Reports that she was running a low grade fever since yesterday. Reports cough and congestion. Transition of care: patient was not received from another setting of care. Onset of symptoms was September 2018. Risk Assessment: Do you want to hurt yourself or someone else? Patient reports no desire to harm self or others. Initial Sepsis Screen: Does the patient meet any 2 criteria? No. Patient's initial sepsis screen is negative. Does the patient have a suspected source of infection? Yes: Productive cough/pneumonia. Care prior to arrival: None. 19:55 Method Of Arrival: Ambulatory aj1 19:55 Acuity: DAREN 3 aj1 Triage Assessment: 19:59 General: Appears in no apparent distress. uncomfortable, Behavior is calm, cooperative, aj1 appropriate for age. Pain: Denies pain. Neuro: Level of Consciousness is awake, alert, obeys commands. Cardiovascular: Patient's skin is warm and dry. Respiratory: Airway is patent Respiratory effort is even, unlabored, Respiratory pattern is regular, symmetrical. Historical: - Allergies: 19:59 HYDROCODONE; aj1 19:59 PENICILLINS; aj1 - Home Meds: 19:59 losartan oral oral [Active]; aspirin 81 mg Oral TbEC 1 tab once daily [Active]; aj1 betamethasone valerate 0.1 % Topical crea once daily [Active]; budesonide 3 mg Oral CECX 2 caps once daily [Active]; cholecalciferol (vitamin D3) 1,000 unit Oral cap daily [Active]; desonide 0.05 % Topical crea daily [Active]; folic acid 0.8 mg Oral cap 0.4 mg daily [Active]; levothyroxine 200 mcg tab 1 tab once daily [Active]; Lipitor 40 mg Oral tab 1 tab once daily [Active]; montelukast 10 mg Oral tab 1 tab once daily [Active]; Plaquenil 200 mg Oral tab 2 tabs once daily [Active]; PreserVision AREDS 2 236-947-09-1 fh-ydqa-vg-mg Oral cap daily [Active]; Protonix 40 mg Oral TbEC 1 tab once daily [Active]; Xarelto 20 mg Oral tab 1 tab once daily [Active]; - PMHx: 19:59 allergies; COPD; GERD; Hyperlipidemia; Hypertension; TIA; aj1 - Immunization history:: Flu vaccine is up to date. - Social history:: Smoking status: Patient/guardian denies using tobacco. - Ebola Screening: : Patient denies travel to an Ebola-affected area in the 21 days before illness onset. Screenin:00 Abuse screen: Denies threats or abuse. Nutritional screening: No deficits noted. tl3 Tuberculosis screening: No symptoms or risk factors identified. Fall Risk None identified. Assessment: 21:00 General: Appears uncomfortable, well groomed, well developed, well nourished, Behavior tl3 is calm, cooperative, appropriate for age. Pain: Complains of pain in chest. Neuro: Level of Consciousness is awake, alert, obeys commands, Oriented to person, place, time, situation, Appropriate for age. Cardiovascular: Patient's skin is warm and dry. Respiratory: Airway is patent Respiratory effort is even, unlabored, Respiratory pattern is regular, symmetrical, Breath sounds are coarse bilaterally. Breath sounds are diminished bilaterally. in left lower lobe, right lower lobe, left posterior lower lobe and right posterior lower lobe. GI: No signs and/or symptoms were reported involving the gastrointestinal system. : No signs and/or symptoms were reported regarding the genitourinary system. Vital Signs: 19:59 BP 147 / 68; Pulse 90; Resp 20; Temp 98.7; Pulse Ox 95% on R/A; Weight 95.71 kg (R); aj1 Height 5 ft. 2 in. (157.48 cm) (R); Pain 0/10; 21:00 BP 124 / 53; Pulse 98; Resp 18; Pulse Ox 100% on R/A; tl3 23:01 BP 132 / 71; Pulse 91; Resp 18; Pulse Ox 96% on R/A; Pain 0/10; mg2 19:59 Body Mass Index 38.59 (95.71 kg, 157.48 cm) aj1 ED Course: 19:52 Patient arrived in ED. ag3 19:58 Triage completed. aj1 19:59 Arm band placed on Patient placed in an exam room. aj1 20:26 Ant Velázquez NP is PHCP. pm1 20:26 Troy Munguia MD is Attending Physician. pm1 20:37 Kristen Reid, KAMRAN is Primary Nurse. tl3 21:00 Patient has correct armband on for positive identification. Bed in low position. Call tl3 light in reach. Side rails up X 1. Pulse ox on. NIBP on. 21:00 No provider procedures requiring assistance completed. Inserted saline lock: 20 gauge tl3 in left antecubital area, using aseptic technique. Blood collected. 21:32 XRAY Chest (1 view) In Process Unspecified. EDMS 22:47 Anjum Madrid MD is Referral Physician. pm1 23:02 IV discontinued, intact, bleeding controlled, No redness/swelling at site. Pressure mg2 dressing applied. Administered Medications: 21:13 Drug: Albuterol - atroVENT (3:1) (2.5 mg - 0.5 mg) 3 ml Route: Nebulizer; mg2 22:07 Follow up: Response: No adverse reaction; Marked relief of symptoms mg2 22:23 Drug: predniSONE 60 mg Route: PO; mg2 22:55 Follow up: Response: No adverse reaction; Marked relief of symptoms mg2 23:01 Drug: AZITHromycin 500 mg Route: PO; mg2 23:01 Follow up: Response: No adverse reaction; Medication administered at discharge. mg2 Outcome: 22:47 Discharge ordered by . pm1 23:02 Discharged to home ambulatory, with family. mg2 23:02 Condition: stable 23:02 Discharge instructions given to patient, family, Instructed on discharge instructions, follow up and referral plans. medication usage, Demonstrated understanding of instructions, follow-up care, medications, Prescriptions given X 2. 23:07 Patient left the ED. mg2 Signatures: Dispatcher [employer] EDMN Esme Knight RN RN aj1 Ant Velázquez, SHANNAN NIGHT FILLER pm1 Kristen Reid, KAMRAN ANDREW tl3 Blake Liu RN RN mg2 Prosper Dominguezce ag3
--- NOTE | 2018-10-06 22:49 | EDPHYS ---
Physician Documentation [facility] Name: Mary Vargas Age: 68 yrs Sex: Female : 1950 Arrival Date: 10/06/2018 Time: 19:52 Bed 26 Private MD: ED Physician Troy Munguia HPI: 10/06 22:19 This 68 yrs old Female presents to ER via Ambulatory with complaints of pm1 Asthma Exacerbation. 22:19 The patient presents to the emergency department with wheezing, Current therapy: pm1 albuterol inhaler, albuterol nebs, steroid inhaler, that began without any particular precipitating event, the patient was reported to have productive cough, shortness of breath. Onset: The symptoms/episode began/occurred 3 day(s) ago. Modifying factors: The symptoms are alleviated by inhaler, nebulizer treatment, the symptoms are aggravated by nothing. Associated signs and symptoms: Pertinent negatives: chest pain, fever, headache, nausea, palpitations, rash, vomiting. Severity of symptoms: in the emergency department the symptoms are unchanged. The patient has experienced similar episodes in the past, a few times. The patient has not recently seen a physician. Historical: - Allergies: 19:59 HYDROCODONE; aj1 19:59 PENICILLINS; aj1 - Home Meds: 19:59 losartan oral oral [Active]; aspirin 81 mg Oral TbEC 1 tab once daily [Active]; aj1 betamethasone valerate 0.1 % Topical crea once daily [Active]; budesonide 3 mg Oral CECX 2 caps once daily [Active]; cholecalciferol (vitamin D3) 1,000 unit Oral cap daily [Active]; desonide 0.05 % Topical crea daily [Active]; folic acid 0.8 mg Oral cap 0.4 mg daily [Active]; levothyroxine 200 mcg tab 1 tab once daily [Active]; Lipitor 40 mg Oral tab 1 tab once daily [Active]; montelukast 10 mg Oral tab 1 tab once daily [Active]; Plaquenil 200 mg Oral tab 2 tabs once daily [Active]; PreserVision AREDS 2 250-605-55-1 wi-rkdq-wy-mg Oral cap daily [Active]; Protonix 40 mg Oral TbEC 1 tab once daily [Active]; Xarelto 20 mg Oral tab 1 tab once daily [Active]; - PMHx: 19:59 allergies; COPD; GERD; Hyperlipidemia; Hypertension; TIA; aj1 - Immunization history:: Flu vaccine is up to date. - Social history:: Smoking status: Patient/guardian denies using tobacco. - Ebola Screening: : Patient denies travel to an Ebola-affected area in the 21 days before illness onset. ROS: 22:19 Constitutional: Negative for fever, chills, and weight loss, Eyes: Negative for injury, pm1 pain, redness, and discharge, ENT: Negative for injury, pain, and discharge, Neck: Negative for injury, pain, and swelling, Cardiovascular: Negative for chest pain, palpitations, and edema. 22:19 Abdomen/GI: Negative for abdominal pain, nausea, vomiting, diarrhea, and constipation, Back: Negative for injury and pain, : Negative for injury, bleeding, discharge, and swelling, MS/Extremity: Negative for injury and deformity, Skin: Negative for injury, rash, and discoloration, Neuro: Negative for headache, weakness, numbness, tingling, and seizure. 22:19 Respiratory: Positive for cough, shortness of breath, Negative for wheezing. Exam: 22:19 Constitutional: This is a well developed, well nourished patient who is awake, alert, pm1 and in no acute distress. Head/Face: Normocephalic, atraumatic. Eyes: Pupils equal round and reactive to light, extra-ocular motions intact. Lids and lashes normal. Conjunctiva and sclera are non-icteric and not injected. Cornea within normal limits. Periorbital areas with no swelling, redness, or edema. ENT: Nares patent. No nasal discharge, no septal abnormalities noted. Tympanic membranes are normal and external auditory canals are clear. Oropharynx with no redness, swelling, or masses, exudates, or evidence of obstruction, uvula midline. Mucous membranes moist. Neck: Trachea midline, no thyromegaly or masses palpated, and no cervical lymphadenopathy. Supple, full range of motion without nuchal rigidity, or vertebral point tenderness. No Meningismus. Chest/axilla: Normal chest wall appearance and motion. Nontender with no deformity. No lesions are appreciated. Cardiovascular: Regular rate and rhythm with a normal S1 and S2. No gallops, murmurs, or rubs. Normal PMI, no JVD. No pulse deficits. 22:19 Abdomen/GI: Soft, non-tender, with normal bowel sounds. No distension or tympany. No guarding or rebound. No evidence of tenderness throughout. Back: No spinal tenderness. No costovertebral tenderness. Full range of motion. Skin: Warm, dry with normal turgor. Normal color with no rashes, no lesions, and no evidence of cellulitis. MS/ Extremity: Pulses equal, no cyanosis. Neurovascular intact. Full, normal range of motion. 22:19 Respiratory: the patient does not display signs of respiratory distress, Respirations: normal, Breath sounds: bronchial sounds, are heard diffusely. 22:19 Neuro: Orientation: is normal, Motor: is normal, moves all fours. Vital Signs: 19:59 BP 147 / 68; Pulse 90; Resp 20; Temp 98.7; Pulse Ox 95% on R/A; Weight 95.71 kg (R); aj1 Height 5 ft. 2 in. (157.48 cm) (R); Pain 0/10; 21:00 BP 124 / 53; Pulse 98; Resp 18; Pulse Ox 100% on R/A; tl3 23:01 BP 132 / 71; Pulse 91; Resp 18; Pulse Ox 96% on R/A; Pain 0/10; mg2 19:59 Body Mass Index 38.59 (95.71 kg, 157.48 cm) aj1 MDM: 20:26 Patient medically screened. pm1 22:19 Data reviewed: vital signs. Data interpreted: Pulse oximetry: on room air is 100 %. pm1 Interpretation: normal. 22:36 ED course: Patient has inhaler therapy at home. Will discharge with systemic steroids pm1 and antibiotics for COPD exacerbation . 22:47 Counseling: I had a detailed discussion with the patient and/or guardian regarding: the pm1 historical points, exam findings, and any diagnostic results supporting the discharge/admit diagnosis, lab results, radiology results, the need for outpatient follow up, a food service substitute, to return to the emergency department if symptoms worsen or persist or if there are any questions or concerns that arise at home. 10/06 20:32 Order name: Basic Metabolic Panel; Complete Time: 22:05 pm1 10/06 20:32 Order name: CBC with Diff; Complete Time: 21:23 pm1 10/06 20:32 Order name: LFT's; Complete Time: 22:05 pm1 10/06 20:32 Order name: Magnesium; Complete Time: 22:05 pm1 10/06 20:32 Order name: NT PRO-BNP; Complete Time: 22:05 pm1 10/06 20:32 Order name: PT-INR; Complete Time: 22:05 pm1 10/06 20:32 Order name: Troponin (emerg Dept Use Only); Complete Time: 22:05 pm1 10/06 20:32 Order name: XRAY Chest (1 view); Complete Time: 22:05 pm1 10/06 20:32 Order name: Blood Culture Adult (2) pm1 10/06 20:33 Order name: Flu; Complete Time: 22:46 pm1 10/06 20:33 Order name: Strep; Complete Time: 22:46 pm1 10/06 22:45 Order name: Throat Culture EDNE 10/06 20:32 Order name: EKG; Complete Time: 20:33 pm1 10/06 20:32 Order name: Cardiac monitoring; Complete Time: 20:37 pm1 10/06 20:32 Order name: EKG - Nurse/Tech; Complete Time: 20:37 pm1 10/06 20:32 Order name: IV Saline Lock; Complete Time: 21:13 pm1 10/06 20:32 Order name: Labs collected and sent; Complete Time: 21:13 pm1 10/06 20:32 Order name: O2 Per Protocol; Complete Time: 20:37 pm1 10/06 20:32 Order name: O2 Sat Monitoring; Complete Time: 20:37 pm1 Administered Medications: 21:13 Drug: Albuterol - atroVENT (3:1) (2.5 mg - 0.5 mg) 3 ml Route: Nebulizer; mg2 22:07 Follow up: Response: No adverse reaction; Marked relief of symptoms mg2 22:23 Drug: predniSONE 60 mg Route: PO; mg2 22:55 Follow up: Response: No adverse reaction; Marked relief of symptoms mg2 23:01 Drug: AZITHromycin 500 mg Route: PO; mg2 23:01 Follow up: Response: No adverse reaction; Medication administered at discharge. mg2 Disposition: 10/06/18 22:47 Discharged to Home. Impression: Chronic obstructive pulmonary disease with (acute) exacerbation. - Condition is Stable. - Discharge Instructions: Chronic Obstructive Pulmonary Disease, How to Use an Inhaler. - Prescriptions for Prednisone 20 mg Oral Tablet - take 3 tablet by ORAL route once daily for 5 days; 15 tablet. Zithromax Z- Edmond 250 mg Oral Tablet - take 1 tablet by ORAL route as directed for 5 days Day 1 - take two (2) tablets one time. Day 2, 3, 4 , 5 take one (1) tablet once daily.; 6 tablet. - Medication Reconciliation Form, Thank You Letter, Antibiotic Education, Prescription Opioid Use form. - Follow up: Emergency Department; When: As needed; Reason: Worsening of condition. Follow up: Anjum Madrid; When: 2 - 3 days; Reason: Recheck today's complaints, Continuance of care, Re-evaluation by your physician. Follow up: Private Physician; When: 2 - 3 days; Reason: Recheck today's complaints, Continuance of care, Re-evaluation by your physician. - Problem is new. - Symptoms have improved. Addendum: 10/16/2018 11:19 Co-signature as Attending Physician, Troy Munguia MD I agree with the assessment and c aguero plan of care. Signatures: Dispatcher [employer] EDMS Esme Knight RN RN aj1 Troy Munguia MD MD cha Marinas, Patrick, SHANNAN MANAGER FITNESS pm1 Blake Liu RN RN mg2 Corrections: (The following items were deleted from the chart) 10/06 23:07 22:47 10/06/2018 22:47 Discharged to Home. Impression: Chronic obstructive pulmonary mg2 disease with (acute) exacerbation. Condition is Stable. Discharge Instructions: Chronic Obstructive Pulmonary Disease, How to Use an Inhaler. Prescriptions for Prednisone 20 mg Oral Tablet - take 3 tablet by ORAL route once daily for 5 days; 15 tablet, Zithromax Z-Edmond 250 mg Oral Tablet - take 1 tablet by ORAL route as directed for 5 days Day 1 - take two (2) tablets one time. Day 2, 3, 4 , 5 take one (1) tablet once daily.; 6 tablet. and Forms are Medication Reconciliation Form, Thank You Letter, Antibiotic Education, Prescription Opioid Use. Follow up: Emergency Department; When: As needed; Reason: Worsening of condition. Follow up: Anjum Madrid; When: 2 - 3 days; Reason: Recheck today's complaints, Continuance of care, Re-evaluation by your physician. Follow up: Private Physician; When: 2 - 3 days; Reason: Recheck today's complaints, Continuance of care, Re-evaluation by your physician. Problem is new. Symptoms have improved. pm1
[2018-10-06] MEDS ORDERED: AZITHROMYCIN 250 MG TAB ONE (23:04)
[2018-10-06 23:45] VITALS: TEMP 98.7
[2018-10-06 23:47] VITALS: BP 132/71; O2SAT 96
--- NOTE | 2018-10-07 17:28 | EKG ---
Test Date: 2018-10-06 Test Time: 22:17:30 Business Editor: MEASUREMENT RESULTS: Intervals: Rate: 89 [place]: 176 QRSD: 132 QT: 386 QTc: 469 [place]: P: 87 [place]: 176 QRS: 26 T: 57 INTERPRETIVE STATEMENTS: Sinus rhythm with premature atrial complexes Right bundle branch block Abnormal ECG Compared to ECG 03/10/2015 10:47:43 Atrial premature complex(es) now present Right bundle-branch block now present Short [place] interval no longer present Incomplete right bundle-branch block no longer present Prolonged QT interval no longer present Electronically Signed On 10-07-18 17:18:05 WOOD CAULKER by Sean Shearer
== END 2018-10-06 23:07 | disposition home or self-care (01) ==
LOC: ER 19:50
DX: J44.1 Chronic obstructive pulmonary disease with (acute) exacerbation (principal); I49.1 Atrial premature depolarization; I45.10 Unspecified right bundle-branch block; R94.31 Abnormal electrocardiogram [ECG] [EKG]; E78.5 Hyperlipidemia, unspecified; I10 Essential (primary) hypertension; K21.9 Gastro-esophageal reflux disease without esophagitis; Z79.82 Long term (current) use of aspirin; Z79.01 Long term (current) use of anticoagulants; Z79.899 Other long term (current) drug therapy; Z86.73 Personal history of transient ischemic attack (TIA), and cerebral infarction without residual deficits
CPT/HCPCS: 36415; 71045; 80048; 80076; 83735; 83880; 84484; 85025; 85610; 87040; 87070; 87081; 87804; 93005; 94640; 99284; J7512

== ENCOUNTER 2019-04-14 00:35 | Emergency (ER) | payer OTHER, MEDICARE ==
--- OUTSIDE RECORDS SUMMARY | 2019-04-14 00:37 | XMS REPORT | Clinical Summary ---
:1950 Author Organization [facility] Address [address] [place] [address] Care Team Providers Name Role Phone Oscar [...] mouth daily. Active Problems Not on file Family History Medical History Relation Name Comments [...] travel history available. Last Filed Vital Signs Not on file Plan of Treatment Not on file Implants Implanted Type Area Riding Double Device Shelf Model / Identifier Expiration Serial / Date Lot System Reveal Linq W/Monitors - [id number] Cardiac N/A: [employer] 2018 LINQSYS / Implanted: 02/16/2018 (Quantity not on file) Pacemakers and N/A CARDIAC RHYTHM / Related DISEASE MGMT [id number] Products Results Not on fileafter 04/13/2018 Insurance Payer Benefit Plan / Subscriber ID Effective Dates Phone Address Type Group MEDICARE MEDICARE PART A xxxxxxxxxx 2017-Present [place], [place] Medicare AND B AARP AARP SUPPLEMENT xxxxxxxxxxx 2017-Present Commercial
--- OUTSIDE RECORDS SUMMARY | 2019-04-14 00:38 | XMS REPORT ---
[...] Problem Atherosclerotic heart disease of I25.10 Active [place] coronary artery without angina pectoris Problem Acute chronic obstructive pulmonary J44.9 Active disease with respiratory distress Problem Factor V Leiden mutation D68.51 Active Problem Cancer C80.1 Active Medications Medication Code Code Instructions Start End Status Dosage System Date Date Losartan [facility] [place] 2] 70873166741 100-25 MG Orally May 15, Active 1 tablet Potassium-HCTZ Once a day 2017 Diovan HCT [facility] [place]NOTE 2] 70044287270 320-25 MG Orally Inactive 1 tablet Once a day Results No Known Results Summary Purpose eClinicalWorks Submission
--- OUTSIDE RECORDS SUMMARY | 2019-04-14 00:38 | XMS REPORT ---
[...] Assessment Atherosclerotic heart disease of I25.10 Active [place] coronary artery without angina pectoris Problem Benign [...] Problem Atherosclerotic heart disease of I25.10 Active [place] coronary artery without angina pectoris Problem Factor V Leiden mutation D68.51 Active Medications Medication Code Code Instructions Start End Status Dosage System Date Date Symbicort [facility] 32260896903 160-4.5 Active 2 puffs MCG/ACT Inhalation Twice a day Synthroid [facility] 44775642737 150 MCG Orally Active 1 tablet on Once a day an empty stomach in the morning Pantoprazole [facility] 99567224903 40 MG PO once Active 1 TAB DAILY Sodium a day IN AM Losartan [facility] 17893859574 100-25 MG April Active 1 tablet Potassium-HCTZ Orally Once a 2017 Diovan HCT [facility] 54142278607 320-25 MG Inactive 1 tablet Orally Once a day ProAir HFA [facility] 54209010908 108 (90 Base) Active 2 puffs as MCG/ACT needed Inhalation every 6 hrs Singulair [facility] 20559241998 10 Orally Once Active 1 tablet in a day the evening Duloxetine HCl [facility] 48788167333 60 MG Orally Active 1 capsule Once a day Tramadol HCl [facility] 41964236920 50 MG Orally Active 1 tablet as every 6 hrs needed Verapamil HCl ER [facility] 23216636050 240 MG Orally March Active 1 tablet Once a day 2017 Aspirin [facility] 61123909264 81 MG Orally Active 1 tablet Once a day Betamethasone [facility] 33004316323 0.05 % Active 1 application Dipropionate Externally to affected Once a day area Xarelto [facility] 42747228963 20 MG Orally Active 1 tablet with Once a day food Atorvastatin [facility] 02014036049 40 MG Orally Active 1 tablet Calcium Once a day Verapamil HCl ER [facility] 70484426080 240 MG Active ONCE A DAY ORALLY Pantoprazole [facility] 38917132215 40 MG Orally March Active 1 tablet Sodium Twice a day 2017 Calcium [facility] 98694487046 600-200 Active not defined MG-UNIT Orally Vitamin D3 [facility] 17460347036 1000 UNIT Active 1 capsule Orally Once a day Losartan [facility] 18916871476 100-25 MG Jun 15, Active 1 tablet Potassium-HCTZ Orally Once a 2017 day Results No Known Results Summary Purpose eClinicalWorks Submission
--- OUTSIDE RECORDS SUMMARY | 2019-04-14 00:38 | XMS REPORT ---
[...] Problem Atherosclerotic heart disease of I25.10 Active [place] coronary artery without angina pectoris Problem Acute chronic obstructive pulmonary J44.9 Active disease with respiratory distress Problem Factor V Leiden mutation D68.51 Active Problem Cancer C80.1 Active Medications No Known Medications Results No Known Results Summary Purpose eClinicalWorks Submission
--- OUTSIDE RECORDS SUMMARY | 2019-04-14 00:38 | XMS REPORT ---
[...] Problem Atherosclerotic heart disease of I25.10 Active [place] coronary artery without angina pectoris Problem Acute chronic obstructive pulmonary J44.9 Active disease with respiratory distress Problem Factor V Leiden mutation D68.51 Active Problem Cancer C80.1 Active Medications No Known Medications Results No Known Results Summary Purpose eClinicalWorks Submission
--- OUTSIDE RECORDS SUMMARY | 2019-04-14 00:38 | XMS REPORT ---
:1950 Author Organization eClinicalWorks Care Team Providers Name Role Phone Harman Reeves Provider Role Unavailable Allergies, Adverse Reactions, Alerts Substance Reaction Event Type penicillin Info Not Available Drug Allergy Hydrocodone Bitart (Antituss) Info Not Available Drug Allergy Amoxicillin Info Not Available Drug Allergy Problems Problem Type Condition Code Onset Dates Condition Status Assessment Primary osteoarthritis of right M17.11 Active knee Problem Prediabetes R73.09 Active Assessment Pain, joint, knee, right M25.561 Active Problem Psoriasis L40.9 Active Problem Hypothyroidism E03.9 Active Problem Gastroesophageal reflux disease K21.9 Active without esophagitis Problem Asthma J45.909 Active Problem Other hammer toe(s) (acquired), M20.41 Active right foot Problem Other hammer toe(s) (acquired), M20.42 Active left foot Problem Interstitial lung disease J84.9 Active Problem Factor V Leiden mutation D68.51 Active Problem Primary osteoarthritis of right M17.11 Active knee Problem Atherosclerotic heart disease of I25.10 Active [place] coronary artery without angina pectoris Problem Systemic lupus erythematosus M32.9 Active Problem Age-related osteoporosis without M81.0 Active current pathological fracture Problem Osteoarthritis of knee, unspecified M17.10 Active laterality, unspecified osteoarthritis type Problem History of transient ischemic Z86.73 Active attack Problem Cancer C80.1 Active Problem Benign essential hypertension I10 Active Problem Mitral valve regurgitation I34.0 Active Problem Acute chronic obstructive pulmonary J44.9 Active disease with respiratory distress Problem Colonic polyp K63.5 Active Problem Macular degeneration H35.30 Active Problem Mixed hyperlipidemia E78.2 Active Problem Obstructive sleep apnea G47.33 Active Medications Medication Code Code Instructions Start End Status Dosage System Date Date Duloxetine HCl [facility] 96694274211 60 MG Orally Active 1 capsule Once a day Vitamin D3 [facility] 31754004228 1000 UNIT Active 1 capsule Orally Once a day Tramadol HCl ND 73463438797 50 MG Orally [place] Active 1 tablet as BID PRN Pain 12, 2018 Singulair [facility] 79728996058 10 Orally Once Active 1 tablet in a day the evening Atorvastatin [facility] 30194120486 40 MG Orally Active 1 tablet Calcium Once a day ProAir HFA [facility] 46492539845 108 (90 Base) Active 2 puffs as MCG/ACT needed Inhalation every 6 hrs Xarelto [facility] 57285499141 20 MG Orally Active 1 tablet with Once a day food Calcium [facility] 71875504874 600-200 MG-UNIT Active not defined Orally Aspirin [facility] 08415391741 81 MG Orally Active 1 tablet Once a day Betamethasone [facility] 84222618020 0.05 % Active 1 application Dipropionate Externally Once to affected a day area Losartan [facility] 93245498261 100-25 MG Active 1 tablet Potassium-HCTZ Orally Once a day Levothyroxine [facility] 34790548818 150 MCG Orally Active 1 tablet on Sodium Once a day an empty stomach in the morning Verapamil HCl ER [facility] 08125021641 240 MG Orally Active once a day Once a day orally Synthroid [facility] 40107089717 150 MCG Orally Active 1 tablet on Once a day an empty stomach in the morning Pantoprazole [facility] 03419476602 40 MG PO once a Active 1 TAB DAILY Sodium day IN AM Symbicort [facility] 81860686634 160-4.5 MCG/ACT Active 2 puffs Inhalation Twice a day Pantoprazole [facility] 48100197199 40 MG Orally Bertha Active 1 tablet Sodium Twice a day 2017 Results No Known Results Summary Purpose eClinicalWorks Submission
--- OUTSIDE RECORDS SUMMARY | 2019-04-14 00:39 | XMS REPORT ---
:1950 Author Organization eClinicalWorks Care Team Providers Name Role Phone Harman Reeves Provider Role Unavailable Allergies, Adverse Reactions, Alerts Substance Reaction Event Type penicillin Info Not Available Drug Allergy Hydrocodone Bitart (Antituss) Info Not Available Drug Allergy Amoxicillin Info Not Available Drug Allergy Problems Problem Type Condition Code Onset Dates Condition Status Assessment Contusion of right knee, initial S80.01XA Active encounter Assessment Tear of right rotator cuff, M75.101 Active unspecified tear extent Assessment Primary osteoarthritis of right M17.11 Active knee Assessment Pain, joint, shoulder, right M25.511 Active Assessment Pain, joint, knee, right M25.561 Active Problem Psoriasis L40.9 Active Problem Hypothyroidism E03.9 Active Problem Atherosclerotic heart disease of I25.10 Active [place] coronary artery without angina pectoris Problem Asthma J45.909 Active Problem Age-related osteoporosis without M81.0 Active current pathological fracture Problem Gastroesophageal reflux disease K21.9 Active without esophagitis Problem Primary osteoarthritis of right M17.11 Active knee Problem Other hammer toe(s) (acquired), M20.41 Active right foot Problem Mitral valve regurgitation I34.0 Active Problem Interstitial lung disease J84.9 Active Problem Tear of right rotator cuff, M75.101 Active unspecified tear extent Problem Factor V Leiden mutation D68.51 Active Problem History of transient ischemic Z86.73 Active attack Problem Systemic lupus erythematosus M32.9 Active Problem Other hammer toe(s) (acquired), M20.42 Active left foot Problem Osteoarthritis of knee, M17.10 Active unspecified laterality, unspecified osteoarthritis type Problem Benign essential hypertension I10 Active Problem Mixed hyperlipidemia E78.2 Active Problem Acute chronic obstructive J44.9 Active pulmonary disease with respiratory distress Problem Cancer C80.1 Active Problem Macular degeneration H35.30 Active Problem Prediabetes R73.09 Active Problem Obstructive sleep apnea G47.33 Active Problem Colonic polyp K63.5 Active Medications Medication Code Code Instructions Start End Status Dosage System Date Date Atorvastatin [facility] 07746564311 40 MG Orally Active 1 tablet Calcium Once a day Xarelto [facility] 54466882774 20 MG Orally Active 1 tablet with Once a day food ProAir HFA [facility] 36957197925 108 (90 Base) Active 2 puffs as MCG/ACT needed Inhalation every 6 hrs Verapamil HCl ER [facility] 56102527047 240 MG Orally Active once a day Once a day orally Calcium [facility] 10529993198 600-200 MG-UNIT Active not defined Orally Synthroid [facility] 93331259662 150 MCG Orally Active 1 tablet on Once a day an empty stomach in the morning Pantoprazole [facility] 43460527413 40 MG PO once a Active 1 TAB DAILY Sodium day IN AM Pantoprazole [facility] 85130713794 40 MG Orally Bertha Active 1 tablet Sodium Twice a day 2017 Singulair [facility] 65743344232 10 Orally Once Active 1 tablet in a day the evening Symbicort [facility] 80740731996 160-4.5 MCG/ACT Active 2 puffs Inhalation Twice a day Levothyroxine [facility] 60524100862 150 MCG Orally Active 1 tablet on Sodium Once a day an empty stomach in the morning Losartan [facility] 38266195435 100-25 MG Active 1 tablet Potassium-HCTZ Orally Once a day Duloxetine HCl [facility] 52219473086 60 MG Orally Active 1 capsule Once a day Aspirin [facility] 07961049322 81 MG Orally Active 1 tablet Once a day Vitamin D3 [facility] 21025493484 1000 UNIT Active 1 capsule Orally Once a day Betamethasone [facility] 59897306757 0.05 % Active 1 application Dipropionate Externally Once to affected a day area Results Name Result Date Reference Range Unit Abnormality Flag MRI : Shoulder, right Summary Purpose eClinicalWorks Submission
--- OUTSIDE RECORDS SUMMARY | 2019-04-14 00:39 | XMS REPORT ---
:1950 Author Organization eClinicalWorks Care Team Providers Name Role Phone Payton Austinh Provider Role Unavailable Allergies, Adverse Reactions, Alerts Substance Reaction Event Type penicillin Info Not Available Drug Allergy Hydrocodone Bitart (Antituss) Info Not Available Drug Allergy Amoxicillin Info Not Available Drug Allergy Problems Problem Type Condition Code Onset Dates Condition Status Assessment History of transient ischemic Z86.73 Active attack Assessment Gastroesophageal reflux disease K21.9 Active without esophagitis Assessment Hypothyroidism E03.9 Active Assessment Osteoarthritis of knee, M17.10 Active unspecified laterality, unspecified osteoarthritis type Assessment Atherosclerotic heart disease of I25.10 Active [place] coronary artery without angina pectoris Assessment History of fall within past 90 Z91.81 Active days Assessment Traumatic tear of supraspinatus S46.811A Active tendon of right shoulder, initial encounter Assessment Mixed hyperlipidemia E78.2 Active Assessment Benign essential hypertension I10 Active Problem Psoriasis L40.9 Active Problem Hypothyroidism E03.9 Active Problem Atherosclerotic heart disease of I25.10 Active [place] coronary artery without angina pectoris Problem Asthma [...] type Problem Benign essential hypertension I10 Active Assessment Asthma J45.909 Active Problem Mixed hyperlipidemia E78.2 Active Problem Acute chronic obstructive J44.9 Active pulmonary disease with respiratory distress Problem Cancer C80.1 Active Problem Macular degeneration H35.30 Active Problem Prediabetes R73.09 Active Problem Obstructive sleep apnea G47.33 Active Problem Colonic polyp K63.5 Active Medications Medication Code Code Instructions Start End Status Dosage System Date Date Tramadol HCl [facility] 54577459890 50 MG Orally [place] Active 1 tab Once a day pRN 20, pain 2019 Losartan [facility] 70147157593 100-25 MG Active 1 tablet Potassium-HCTZ Orally Once a day Calcium [facility] 43975645477 600-200 Active not defined MG-UNIT Orally Duloxetine HCl [facility] 58325302308 60 MG Orally Active 1 capsule Once a day Betamethasone [facility] 40785316372 0.05 % January Active 1 application Dipropionate Externally 19, to affected Once a day 2018 area Levothyroxine [facility] 53069649871 150 MCG Orally Active 1 tablet on Sodium Once a day an empty stomach in the morning ProAir HFA [facility] 11887971168 108 (90 Base) Active 2 puffs as MCG/ACT needed Inhalation every 6 hrs Verapamil HCl ER [facility] 47207799066 240 MG Orally Active once a day Once a day orally Pantoprazole [facility] 06498183634 40 MG PO once Active 1 TAB DAILY Sodium a day IN AM Aspirin [facility] 03864169470 81 MG Orally Active 1 tablet Once a day Vitamin D3 [facility] 83505374283 1000 UNIT Active 1 capsule Orally Once a day Singulair [facility] 66286426109 10 Orally Once Active 1 tablet in a day the evening Atorvastatin [facility] 15336796288 40 MG Orally Active 1 tablet Calcium Once a day Xarelto [facility] 00105569499 20 MG Orally Active 1 tablet with Once a day food Symbicort [facility] 67971396616 160-4.5 Active 2 puffs MCG/ACT Inhalation Twice a day Synthroid [facility] 99045839431 150 MCG Orally Active 1 tablet on Once a day an empty stomach in the morning Results No Known Results Summary Purpose eClinicalWorks Submission
--- OUTSIDE RECORDS SUMMARY | 2019-04-14 00:39 | XMS REPORT ---
:1950 Author Organization eClinicalWorks Care Team Providers Name Role Phone Leandro Harman Provider Role Unavailable Allergies, Adverse Reactions, Alerts Substance Reaction Event Type penicillin Info Not Available Drug Allergy Hydrocodone Bitart (Antituss) Info Not Available Drug Allergy Amoxicillin Info Not Available Drug Allergy Problems Problem Type Condition Code Onset Dates Condition Status Assessment Impingement syndrome of right M75.41 Active shoulder Assessment Contusion of right knee, initial S80.01XA Active encounter Assessment Tear of right rotator cuff, M75.101 Active unspecified tear extent Assessment Primary osteoarthritis of right M17.11 Active knee Assessment Pain, joint, shoulder, right M25.511 Active Assessment Pain, joint, knee, right M25.561 Active Problem Psoriasis L40.9 Active Problem Hypothyroidism E03.9 Active Problem Atherosclerotic heart disease of I25.10 Active [place] coronary artery without angina pectoris Problem Asthma [...] Start End Status Dosage System Date Date Vitamin D3 [facility] 50343844682 1000 UNIT Active 1 capsule Orally Once a day Losartan [facility] 23327548286 100-25 MG Active 1 tablet Potassium-HCTZ Orally Once a day Singulair [facility] 55268260801 10 Orally Once Active 1 tablet in a day the evening Betamethasone [facility] 51405991062 0.05 % January Active 1 application Dipropionate Externally 19, to affected Once a day 2019 area Symbicort [facility] 68547672227 160-4.5 Active 2 puffs MCG/ACT Inhalation Twice a day Xarelto [facility] 14800247668 20 MG Orally Active 1 tablet with Once a day food Pantoprazole [facility] 63842715704 40 MG PO once Active 1 TAB DAILY Sodium a day IN AM Verapamil HCl ER [facility] 47614154510 240 MG Orally Active once a day Once a day orally Duloxetine HCl [facility] 20811213077 60 MG Orally Active 1 capsule Once a day Levothyroxine [facility] 04894718732 150 MCG Orally Active 1 tablet on Sodium Once a day an empty stomach in the morning Aspirin [facility] 21315011544 81 MG Orally Active 1 tablet Once a day Tramadol HCl [facility] 53479914326 50 MG Orally December Active 1 tab Once a day pRN 20, pain 2019 Atorvastatin [facility] 79323824276 40 MG Orally Active 1 tablet Calcium Once a day ProAir HFA [facility] 38268915248 108 (90 Base) Active 2 puffs as MCG/ACT needed Inhalation every 6 hrs Synthroid [facility] 73605219470 150 MCG Orally Active 1 tablet on Once a day an empty stomach in the morning Calcium [facility] 32970455758 600-200 Active not defined MG-UNIT Orally Results No Known Results Summary Purpose eClinicalWorks Submission
--- OUTSIDE RECORDS SUMMARY | 2019-04-14 00:39 | XMS REPORT ---
:1950 Author Organization eClinicalWorks Care Team Providers Name Role Phone Payton Austinh Provider Role Unavailable Allergies, Adverse Reactions, Alerts Substance Reaction Event Type Hydrocodone Bitart (Antituss) Info Not Available Drug Allergy Amoxicillin Info Not Available Drug Allergy Problems Problem Type Condition Code Onset Dates Condition Status Assessment Asthma J45.909 Active Assessment Other hammer toe(s) (acquired), M20.42 Active left foot Assessment History of transient ischemic Z86.73 Active attack Assessment Gastroesophageal reflux disease K21.9 Active without esophagitis Assessment Osteoarthritis of knee, unspecified M17.10 Active laterality, unspecified osteoarthritis type Assessment Hypothyroidism E03.9 Active Assessment Atherosclerotic heart disease of I25.10 Active [place] coronary artery without angina pectoris Assessment Mixed hyperlipidemia E78.2 Active Assessment Medicare annual wellness visit, Z00.00 Active subsequent Problem Prediabetes R73.09 Active Assessment Benign essential hypertension I10 Active [...] Problem Atherosclerotic heart disease of I25.10 Active [place] coronary artery without angina pectoris Problem Systemic lupus erythematosus M32.9 Active Problem Age-related osteoporosis without M81.0 Active current pathological fracture Problem Osteoarthritis of knee, unspecified M17.10 Active laterality, unspecified osteoarthritis type Problem History of transient ischemic Z86.73 Active attack Assessment Encounter for screening mammogram Z12.31 Active for malignant neoplasm of breast Problem Cancer C80.1 Active Assessment Other hammer toe(s) (acquired), M20.41 Active right foot Problem Benign essential hypertension I10 Active Problem Mitral valve regurgitation I34.0 Active Assessment Encounter for screening for Z13.820 Active osteoporosis Problem Acute chronic obstructive pulmonary J44.9 Active disease with respiratory distress Problem Colonic polyp K63.5 Active Problem Macular degeneration H35.30 Active Problem Mixed hyperlipidemia E78.2 Active Problem Obstructive sleep apnea G47.33 Active Medications Medication Code Code Instructions Start End Status Dosage System Date Date Synthroid [facility] 93087717566 150 MCG Orally Active 1 tablet on Once a day an empty stomach in the morning Verapamil HCl ER [facility] 74398933047 240 MG Orally Active once a day Once a day orally Betamethasone [facility] 10507582765 0.05 % Active 1 application Dipropionate Externally Once to affected a day area Singulair [facility] 32351711427 10 Orally Once Active 1 tablet in a day the evening ProAir HFA [facility] 13543604706 108 (90 Base) Active 2 puffs as MCG/ACT needed Inhalation every 6 hrs [address]arelto [facility] 63392117982 20 MG Orally Active 1 tablet with Once a day food Calcium [facility] 70124365211 600-200 MG-UNIT Active not defined Orally Vitamin D3 [facility] 39143802397 1000 UNIT Active 1 capsule Orally Once a day Losartan [facility] 75070517959 100-25 MG Active 1 tablet Potassium-HCTZ Orally Once a day Aspirin [facility] 48196776172 81 MG Orally Active 1 tablet Once a day Pantoprazole [facility] 92481730740 40 MG PO once a Active 1 TAB DAILY Sodium day IN AM Pantoprazole [facility] 65628119795 40 MG Orally [place] Active 1 tablet Sodium Twice a day [address] [facility] 56540104861 160-4.5 MCG/ACT Active 2 puffs Inhalation Twice a day Tramadol HCl [facility] 81240937216 50 MG Orally [place] Active 1 tablet as BID PRN Pain 12, needed [address] [facility] 17320332549 40 MG Orally Active 1 tablet Calcium Once a day Duloxetine HCl [facility] 86288323154 60 MG Orally Active 1 capsule Once a day Results No Known Results Summary Purpose eClinicalWorks Submission
--- OUTSIDE RECORDS SUMMARY | 2019-04-14 00:39 | XMS REPORT ---
:1950 Author Organization eClinicalWorks Care Team Providers Name Role Phone Harman Reeves Provider Role Unavailable Allergies No Known Allergies Problems Problem Type Condition Code Onset Dates Condition Status Problem Asthma J45.909 Active Problem Age-related osteoporosis without M81.0 Active current pathological fracture Problem Gastroesophageal reflux disease K21.9 Active without esophagitis Problem Primary osteoarthritis of right M17.11 Active knee Problem Mitral valve regurgitation I34.0 Active Problem Other hammer toe(s) (acquired), M20.41 Active right foot Problem Interstitial lung disease J84.9 Active Problem Factor V Leiden mutation D68.51 Active Problem Tear of right rotator cuff, M75.101 Active unspecified tear extent Problem History of transient ischemic Z86.73 Active attack Problem Systemic lupus erythematosus M32.9 Active Problem Other hammer toe(s) (acquired), M20.42 Active left foot Problem Osteoarthritis of knee, unspecified M17.10 Active laterality, unspecified osteoarthritis type Problem Benign essential hypertension I10 Active Problem Mixed hyperlipidemia E78.2 Active Problem Acute chronic obstructive pulmonary J44.9 Active disease with respiratory distress Problem Cancer C80.1 Active Problem Macular degeneration H35.30 Active Problem Prediabetes R73.09 Active Problem Obstructive sleep apnea G47.33 Active Problem Psoriasis L40.9 Active Problem Atherosclerotic heart disease of I25.10 Active [place] coronary artery without angina pectoris Problem Colonic polyp K63.5 Active Problem Hypothyroidism E03.9 Active Medications No Known Medications Results No Known Results Summary Purpose eClinicalWorks Submission
--- OUTSIDE RECORDS SUMMARY | 2019-04-14 00:39 | XMS REPORT ---
[...] Problem Atherosclerotic heart disease of I25.10 Active [place] coronary artery without angina pectoris Problem Colonic polyp K63.5 Active Problem Hypothyroidism E03.9 Active Medications No Known Medications Results No Known Results Summary Purpose eClinicalWorks Submission
--- OUTSIDE RECORDS SUMMARY | 2019-04-14 00:40 | XMS REPORT ---
[...] Problem Atherosclerotic heart disease of I25.10 Active [place] coronary artery without angina pectoris Problem Colonic polyp K63.5 Active Problem Hypothyroidism E03.9 Active Medications Medication Code System Code Instructions Start Date End Date Status Dosage Fosamax [facility] 53444519900 70 MG Orally once February 13, Active 1 tablet a week 2019 Results No Known Results Summary Purpose eClinicalWorks Submission
--- OUTSIDE RECORDS SUMMARY | 2019-04-14 00:40 | XMS REPORT ---
[...] Problem Atherosclerotic heart disease of I25.10 Active [place] coronary artery without angina pectoris Problem Colonic polyp K63.5 Active Problem Hypothyroidism E03.9 Active Medications No Known Medications Results No Known Results Summary Purpose eClinicalWorks Submission
--- OUTSIDE RECORDS SUMMARY | 2019-04-14 00:40 | XMS REPORT ---
:1950 Author Organization eClinicalWorks Care Team Providers Name Role Phone Oscar Austin Provider Role Unavailable Allergies No Known Allergies Problems Problem Type Condition Code Onset Dates Condition Status Assessment Asthma J45.909 Active Problem Psoriasis L40.9 Active Problem Hypothyroidism E03.9 Active Problem Atherosclerotic heart disease of I25.10 Active [place] coronary artery without angina pectoris Problem Asthma [...] Medications Medication Code Code Instructions Start End Date Status Dosage System Date Breo Ellipta [facility] 84927574697 200-25 MCG/INH April 09, Active 1 puff Inhalation Once 2019 a day Symbicort [place] 50667327330 160-4.5 MCG/ACT Inactive 2 puffs Inhalation Twice a day Results No Known Results Summary Purpose eClinicalWorks Submission
--- OUTSIDE RECORDS SUMMARY | 2019-04-14 00:40 | XMS REPORT ---
:1950 Author Organization eClinicalWorks Care Team Providers Name Role Phone Payton Austinh Provider Role Unavailable Allergies, Adverse Reactions, Alerts Substance Reaction Event Type penicillin Info Not Available Drug Allergy Hydrocodone Bitart (Antituss) Info Not Available Drug Allergy Amoxicillin Info Not Available Drug Allergy Problems Problem Type Condition Code Onset Dates Condition Status Assessment Osteoarthritis of knee, M17.10 Active unspecified laterality, unspecified osteoarthritis type Assessment History of transient ischemic Z86.73 Active attack Assessment Atherosclerotic heart disease of I25.10 Active [place] coronary artery without angina pectoris Assessment Hypothyroidism E03.9 Active Assessment History of fall within past 90 Z91.81 Active days Assessment Traumatic tear of supraspinatus S46.811A Active tendon of right shoulder, initial encounter Assessment Osteopenia, unspecified location M85.80 Active Assessment Mixed hyperlipidemia E78.2 Active Assessment Benign essential hypertension I10 Active Problem Psoriasis L40.9 Active Problem Hypothyroidism E03.9 Active Problem Atherosclerotic heart disease of I25.10 Active [place] coronary artery without angina pectoris Problem Asthma [...] Active unspecified laterality, unspecified osteoarthritis type Assessment Asthma J45.909 Active Problem Benign essential hypertension I10 Active Assessment Gastroesophageal reflux disease K21.9 Active without esophagitis Problem Mixed hyperlipidemia E78.2 Active Problem Acute chronic obstructive J44.9 Active pulmonary disease with respiratory distress Assessment History of rotator cuff surgery Z98.890 Active Problem Cancer C80.1 Active Problem Macular degeneration H35.30 Active Problem Prediabetes R73.09 Active Problem Obstructive sleep apnea G47.33 Active Problem Colonic polyp K63.5 Active Medications Medication Code Code Instructions Start End Status Dosage System Date Date Symbicort [facility] 75735967550 160-4.5 MCG/ACT Active 2 puffs Inhalation Twice a day Aspirin [facility] 64546605637 81 MG Orally Active 1 tablet Once a day Losartan [facility] 73545976381 100-25 MG Active 1 tablet Potassium-HCTZ Orally Once a day Singulair [facility] 97720675288 10 Orally Once Active 1 tablet a day in the evening Atorvastatin [facility] 79346541232 40 MG Orally Active 1 tablet Calcium Once a day Tramadol HCl [facility] 50200198121 50 MG Orally Active 1 tab Once a day pRN pain Xarelto [facility] 89918557071 20 MG Orally Active 1 tablet Once a day with food ProAir HFA [facility] 93720360149 108 (90 Base) Active 2 puffs as MCG/ACT needed Inhalation every [address] [facility] 35057020335 150 MCG Orally Active 1 tablet Sodium Once a day on an empty stomach in the morning Verapamil HCl ER [facility] 88473556401 240 MG Orally Active once a day Once a day orally Pantoprazole [facility] 13958065837 40 MG PO once a Active 1 TAB Sodium day DAILY IN AM Duloxetine HCl [facility] 20971878467 60 Orally Once Active 1 capsule a day Vitamin D3 [facility] 97668296511 1000 UNIT Active 1 capsule Orally Once a day Fosamax [facility] 37635505183 70 MG Orally February 13Jun Active 1 tablet once a week [address] [facility] 83176531288 600-200 MG-UNIT Active not Orally defined Synthroid [facility] 24984323369 150 MCG Orally Active 1 tablet Once a day on an empty stomach in the morning Results No Known Results Summary Purpose eClinicalWorks Submission
--- OUTSIDE RECORDS SUMMARY | 2019-04-14 00:40 | XMS REPORT ---
[...] Problem Atherosclerotic heart disease of I25.10 Active [place] coronary artery without angina pectoris Problem Colonic polyp K63.5 Active Problem Hypothyroidism E03.9 Active Medications No Known Medications Results No Known Results Summary Purpose eClinicalWorks Submission
[2019-04-14] MEDS ORDERED: TRAMADOL HCL 50 MG TAB ONE (02:44)
--- NOTE | 2019-04-14 03:11 | EDPHYS ---
Physician Documentation [facility] Name: Mary Vargas Age: 69 yrs Sex: Female : 1950 Arrival Date: 04/14/2019 Time: 00:39 Bed 19 Private MD: [facility] ED Physician Pineda Cavazos HPI: 04/14 04:42 This 69 yrs old Female presents to ER via Ambulatory with complaints of Fall gs Injury. 04:42 Details of fall: The patient fell from an upright position, while walking. Onset: The gs symptoms/episode began/occurred acutely, just prior to arrival. Associated injuries: The patient sustained injury to the head, contusion, hematoma, swelling, tenderness. Severity of symptoms: At their worst the symptoms were moderate, in the emergency department the symptoms are unchanged. The patient has not experienced similar symptoms in the past. The patient has not recently seen a physician. Historical: - Allergies: 00:47 HYDROCODONE; la1 00:47 PENICILLINS; la1 - Home Meds: 00:47 Xarelto 20 mg Oral tab 1 tab once daily [Active]; la1 - PMHx: 00:47 allergies; COPD; GERD; Hyperlipidemia; Hypertension; TIA; Diabetes - NIDDM; la1 - Immunization history:: Adult Immunizations up to date. - Social history:: Smoking status: Patient/guardian denies using tobacco. - Immunization history: Last tetanus immunization: - up to date. - Ebola Screening: : No symptoms or risks identified at this time. ROS: 04:42 All other systems are negative. gs Exam: 04:42 Eyes: Pupils equal round and reactive to light, extra-ocular motions intact. Lids and gs lashes normal. Conjunctiva and sclera are non-icteric and not injected. Cornea within normal limits. Periorbital areas with no swelling, redness, or edema. ENT: Nares patent. No nasal discharge, no septal abnormalities noted. Tympanic membranes are normal and external auditory canals are clear. Oropharynx with no redness, swelling, or masses, exudates, or evidence of obstruction, uvula midline. Mucous membranes moist. Neck: Trachea midline, no thyromegaly or masses palpated, and no cervical lymphadenopathy. Supple, full range of motion without nuchal rigidity, or vertebral point tenderness. No Meningismus. Chest/axilla: Normal chest wall appearance and motion. Nontender with no deformity. No lesions are appreciated. Cardiovascular: Regular rate and rhythm with a normal S1 and S2. No gallops, murmurs, or rubs. Normal PMI, no JVD. No pulse deficits. Respiratory: Lungs have equal breath sounds bilaterally, clear to auscultation and percussion. No rales, rhonchi or wheezes noted. No increased work of breathing, no retractions or nasal flaring. Abdomen/GI: Soft, non-tender, with normal bowel sounds. No distension or tympany. No guarding or rebound. No evidence of tenderness throughout. Back: No spinal tenderness. No costovertebral tenderness. Full range of motion. Skin: Warm, dry with normal turgor. Normal color with no rashes, no lesions, and no evidence of cellulitis. Neuro: Awake and alert, GCS 15, oriented to person, place, time, and situation. Cranial nerves II-XII grossly intact. Motor strength 5/5 in all extremities. Sensory grossly intact. Cerebellar exam normal. Normal gait. 04:42 Constitutional: The patient appears alert, awake. 04:42 Head/face: Noted is hematoma, swelling, tenderness, that is moderate, of the left side of forehead. 04:42 Musculoskeletal/extremity: Pulses: are normal with no appreciated deficits, Sensation intact. Joints: the left knee displays abrasion mild no effusion. Vital Signs: 00:48 BP 189 / 98; Pulse 85; Resp 16; Temp 97.4; Pulse Ox 98% on R/A; Weight 98.88 kg; Height la1 5 ft. 2 in. (157.48 cm); 02:20 BP 163 / 71; Pulse 73; Resp 17; Pulse Ox 96% on R/A; rr5 03:19 BP 150 / 80; Pulse 70; Resp 17; Temp 98.1; Pulse Ox 100% on R/A; rr5 00:48 Body Mass Index 39.87 (98.88 kg, 157.48 cm) la1 Kiko Coma Score: 00:59 Eye Response: spontaneous(4). Verbal Response: oriented(5). Motor Response: obeys ea commands(6). Total: 15. Trauma Score (Adult): 00:59 Eye Response: spontaneous(1); Verbal Response: oriented(1); Motor Response: obeys ea commands(2); Systolic BP: > 89 mm Hg(4); Respiratory Rate: 10 to 29 per min(4); Kiko Score: 15; Trauma Score: 12 MDM: 00:54 Patient medically screened. 04:42 Differential diagnosis: closed head injury, extra axial hematoma , ich. Data reviewed: vital signs, nurses notes, radiologic studies. Counseling: I had a detailed discussion with the patient and/or guardian regarding: the historical points, exam findings, and any diagnostic results supporting the discharge/admit diagnosis, radiology results, the need for outpatient follow up. Response to treatment: the patient's symptoms have mildly improved after treatment, and as a result, I will discharge patient. 04/14 00:55 Order name: CT Head C Spine Administered Medications: 02:30 Drug: traMADol 50 mg Route: PO; rr5 03:20 Follow up: Response: No adverse reaction rr5 Disposition: 04/14/19 03:10 Discharged to Home. Impression: Contusion of other part of head. - Condition is Stable. - Discharge Instructions: Head Injury, Adult. - Medication Reconciliation Form, Thank You Letter, Antibiotic Education, Prescription Opioid Use form. - Follow up: Private Physician; When: 1 - 2 days; Reason: Re-evaluation by your physician. Signatures: Dispatcher [employer] EDMS Gerald Arthur RN RN [email or web address] Tereza Selby RN RN ea Starr, Gregory, MD MD gs Roque, Raymond, RN RN rr5 Corrections: (The following items were deleted from the chart) 03:24 03:10 04/14/2019 03:10 Discharged to Home. Impression: Contusion of other part of head. rr5 Condition is Stable. Forms are Medication Reconciliation Form, Thank You Letter, Antibiotic Education, Prescription Opioid Use. Follow up: Private Physician; When: 1 - 2 days; Reason: Re-evaluation by your physician.
--- NOTE | 2019-04-14 03:11 | ER ---
Nurse's Notes [facility] Name: Mary Vargas Age: 69 yrs Sex: Female : 1950 Arrival Date: 04/14/2019 Time: 00:39 Bed 19 Private MD: Oscar Austin Diagnosis: Contusion of other part of head Presentation: 04/14 00:46 Presenting complaint: Patient states: I tripped coming up the stairs and hit the left la1 side of my face, right shoulder, and CODY knees on the wooden stairs. Denies LOC but does take xarelto. Transition of care: patient was not received from another setting of care. Onset of symptoms was April 14, 2019. Risk Assessment: Do you want to hurt yourself or someone else? Patient reports no desire to harm self or others. Initial Sepsis Screen: Does the patient meet any 2 criteria? No. Patient's initial sepsis screen is negative. Does the patient have a suspected source of infection? No. Patient's initial sepsis screen is negative. Care prior to arrival: None. 00:46 Method Of Arrival: Ambulatory la1 00:46 Acuity: DAREN 2 la1 01:07 Mechanism of Injury: Fall Pt reports she tripped going up the stairs and hit head. Pt ea denies LOC. Trauma event details: Injury occurred in the [facility], Injury occurred: at home. Injury occurred: April 14, 2019. Trauma Activation: Alert Physician: ED Physician; Name: Cavazos; Notified At: ; Arrived At: Physician: General Surgeon; Name: ; Notified At: ; Arrived At: Physician: Radiology; Name: ; Notified At: ; Arrived At: Physician: Respiratory; Name: ; Notified At: ; Arrived At: Physician: Lab; Name: ; Notified At: ; Arrived At: Historical: - Allergies: 00:47 HYDROCODONE; la1 00:47 PENICILLINS; la1 - Home Meds: 00:47 Xarelto 20 mg Oral tab 1 tab once daily [Active]; la1 - PMHx: 00:47 allergies; COPD; GERD; Hyperlipidemia; Hypertension; TIA; Diabetes - NIDDM; la1 - Immunization history:: Adult Immunizations up to date. - Social history:: Smoking status: Patient/guardian denies using tobacco. - Immunization history: Last tetanus immunization: - up to date. - Ebola Screening: : No symptoms or risks identified at this time. Screenin:56 Abuse screen: Denies threats or abuse. Nutritional screening: No deficits noted. ea Tuberculosis screening: No symptoms or risk factors identified. Fall Risk Fall in past 12 months (25 points). Primary Survey: 00:57 NO uncontrolled hemorrhage observed. A: The patient is alert. Airway: patent. ea Breathing/Chest: Respiratory pattern: regular, Respiratory effort: spontaneous, unlabored. Breathing/Chest: Chest inspection: symmetrical rise and fall of the chest. Circulation: Skin color: pink, Skin temperature: warm. Disability Alert. Exposure/Environment: There is no evidence of uncontrolled external bleeding. A warming method has been applied: A warm blanket has been provided to the patient. 01:57 Reassessment Airway Airway Patent Breathing/Chest Respiratory pattern Regular rr5 Respiratory effort Spontaneous Unlabored Breath sounds Clear Chest inspection Symmetrical Circulation Heart tones Present Pulses Palpable Color [place] Temperature Warm Disability Alert. Assessment: 00:59 General: Appears uncomfortable, Behavior is calm, cooperative, appropriate for age. ea Pain: Complains of pain in forehead. Neuro: Level of Consciousness is awake, alert, obeys commands, Oriented to person, place, time, situation. Cardiovascular: Patient's skin is warm and dry. Respiratory: Airway is patent Respiratory effort is even, unlabored, Respiratory pattern is regular, symmetrical. Derm: hematoma noted to left forehead and abrasion to left forearm. Musculoskeletal: Reports recent rotator cuff surgery to right shoulder. Injury Description: Head injury sustained to left side of forehead is closed, did not have loss of consciousness, was sustained 30-60 minutes ago. 02:20 Reassessment: Patient appears in no apparent distress at this time. Patient is alert, rr5 oriented x 3, equal unlabored respirations, skin warm/dry/pink. 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 with ice pack applied to her head. awaiting for CT report. complaining of head ache, ED provider aware. 03:20 Reassessment: Patient appears in no apparent distress at this time. Patient is alert, rr5 oriented x 3, equal unlabored respirations, skin warm/dry/pink. discharge instruction given and explained without complaints made. Patient states feeling better. Patient states symptoms have improved. Vital Signs: 00:48 BP 189 / 98; Pulse 85; Resp 16; Temp 97.4; Pulse Ox 98% on R/A; Weight 98.88 kg; Height la1 5 ft. 2 in. (157.48 cm); 02:20 BP 163 / 71; Pulse 73; Resp 17; Pulse Ox 96% on R/A; rr5 03:19 BP 150 / 80; Pulse 70; Resp 17; Temp 98.1; Pulse Ox 100% on R/A; rr5 00:48 Body Mass Index 39.87 (98.88 kg, 157.48 cm) la1 [place] Coma Score: 00:59 Eye Response: spontaneous(4). Verbal Response: oriented(5). Motor Response: obeys ea commands(6). Total: 15. Trauma Score (Adult): 00:59 Eye Response: spontaneous(1); Verbal Response: oriented(1); Motor Response: obeys ea commands(2); Systolic BP: > 89 mm Hg(4); Respiratory Rate: 10 to 29 per min(4); Kiko Score: 15; Trauma Score: 12 ED Course: 00:39 Patient arrived in ED. do 00:39 Oscar Austin, is Private Physician. do 00:47 Triage completed. la1 00:48 Arm band placed on left wrist. la1 00:50 Pineda Cavazos MD is Attending Physician. gs 00:57 Patient maintains SpO2 saturation greater than 95% on room air. Thermoregulation: warm ea blanket given to patient. 00:58 Patient has correct armband on for positive identification. Bed in low position. Pulse ea ox on. NIBP on. 01:32 Johnson Wallace RN is Primary Nurse. rr5 01:39 CT Head C Spine In Process Unspecified. EDMS 03:20 No provider procedures requiring assistance completed. Patient did not have IV access rr5 during this emergency room visit. Administered Medications: 02:30 Drug: traMADol 50 mg Route: PO; rr5 03:20 Follow up: Response: No adverse reaction rr5 Intake: 03:00 PO: 200ml (Water); Total: 200ml. rr5 Outcome: 03:10 Discharge ordered by . gs 03:10 Patient's length of stay was not longer than 2 hours. rr5 03:20 Discharged to home ambulatory, with family. rr5 03:20 Condition: stable 03:20 Discharge instructions given to patient, Instructed on discharge instructions, follow up and referral plans. Demonstrated understanding of instructions, follow-up care. 03:24 Patient left the ED. rr5 Signatures: Dispatcher [employer] EDGerald Marquez RN RN laLori Barney Elena RN RN Pineda Pink MD MD gs Roque, Raymond, RN RN rr5 Corrections: (The following items were deleted from the chart) 01:09 01:07 Trauma event details: Injury occurred in the [facility], Injury occurred: ea at home. Injury occurred: April 14, 2019 Injury occurred at: 01:08 ea
--- NOTE | 2019-04-15 10:37 | RAD REPORT ---
EXAM DESCRIPTION: CT head without IV contrast and CT cervical spine without IV contrast CLINICAL HISTORY: 69-year-old female with pain after tripping u the stairs and hitting the left side of her face and right shoulder. TECHNIQUE: Multiple axial CT images of the brain and cervical spine were performed followed by sagit shruthi and coronal reconstructed images. The CT study is performed according to ALARA (as low as reasona tony achievable) or ALARA/IMAGE GENTLY, with automatic adjustment of mA and/or kV according to patient size. Performed on: 04/14/2019 at 1:24 AM COMPARISON: None. FINDINGS: CT HEAD: There is no evidence of mass, acute mass effect or midline shift. There are no acute extra-axial flui d collections. There is no evidence of acute intracranial hemorrhage. The cerebral sulci and ventricles are prominent consistent with age-related volume loss. There are no focal abnormal areas of increased or decreased attenuation. There is no significant mucosal thickening of the paranasal sinuses. The mastoid air cells are clear. The orbital contents are grossly unremarkable. No acute osseous abnormalities are identified. There is left frontal scalp soft tissue swelling and hematoma. CERVICAL SPINE: The cervical vertebrae are normal in height. There is straightening of the normal cervical lordosis. There is mild disc space narrowing at C4-C5 and C5-C6 and mild degenerative spurring of the vertebral endplates from C3 through C7. Bone mineralization is normal. The atlanto-axial articulation is pr eserved and the odontoid process is intact. There are mild degenerative changes of the occipital atla ntal articulation. There is normal alignment of the facet joints on the parasagittal images. There is no evidence of acute fracture or subluxation. There is no significant canal stenosis. Ther e is mild right C3-C4 neural foraminal stenosis secondary to uncovertebral joint hypertrophy. The par avertebral and paraspinal soft tissues are unremarkable. The lung apices are clear. IMPRESSION: 1. There is no evidence of acute intracranial pathology. There is mild age-related volum e loss. 2. Left frontal scalp soft tissue swelling and hematoma. 3. No evidence of acute osseous injury involving the cervical spine. There is straightening of the no rmal cervical lordosis. 4. There are very mild degenerative changes of the cervical spine as described above. Electronically signed by: Keily Quiñonez DO 04/14/2019 2:03 AM CDT Due to temporary technical issues with the PACS/Fluency reporting system, reports are being signed by the in house radiologist as a courtesy to ensure prompt reporting. The interpreting radiologist is f ully responsible for the content of the report.
== END 2019-04-14 03:24 | disposition home or self-care (01) ==
LOC: ER 00:35
DX: S00.93XA Contusion of unspecified part of head, initial encounter (principal); W18.30XA Fall on same level, unspecified, initial encounter; Y93.01 Activity, walking, marching and hiking; J44.9 Chronic obstructive pulmonary disease, unspecified; K21.9 Gastro-esophageal reflux disease without esophagitis; E78.5 Hyperlipidemia, unspecified; I10 Essential (primary) hypertension; E11.9 Type 2 diabetes mellitus without complications; Z86.73 Personal history of transient ischemic attack (TIA), and cerebral infarction without residual deficits; Z88.5 Allergy status to narcotic agent; Z88.0 Allergy status to penicillin; Z79.01 Long term (current) use of anticoagulants
CPT/HCPCS: 70450; 72125; 99284